=== PATIENT | male | born 1950 | race Caucasian/White ===

== ENCOUNTER 2016-08-20 08:16 | Outpatient (CLI) | payer MEDICARE ==
[~2016-08-20] VITALS: Ht 172.7 cm; Wt 95.9 kg
--- NOTE | ~2016-08-20 | HEMODYNAMI ---
PATIENT:SAMMI EASTON MEDICAL RECORD: [id number] : 50 LOCATION:DNORBERTO ADMISSION DATE: 08/20/16 Generatedon:08/20/201610:47 Patient name: SAMMI EASTON Patient #: [id number] : 1950 Date of study: 08/20/2016 Page: Of Hemodynamic Procedure Report Patient Data Patient Demographics Procedure consent was obtained First Name: SAMMI Gender: Male Last Name: JEMMA : 1950 Middle Initial: SPRING Age: 65 year(s) Patient #: [id number] Race: SSN: [id number] Additional ID: [id number] Contact details Address: [address] [address] State: [place] City: [place] Zip code: [address] Past Medical History Allergies Allergen Reaction Date Comments Reported Other allergy 08/20/2016 N Admission Admission Data Admission Date: 08/20/2016 Admission Time: 8:16 Arrival Date: 08/20/2016 Arrival Time: 10:00 Admit Source: Other Insurance Payor: Medicare Height (in.): 68 BSA: 2.09 (m2) Height (cm.): 172.72 BMI: 32.08 (kg/m2) Weight (lbs.): 211 Weight (kg.): 95.71 Lab Results Lab Result Date: 08/20/2016 Lab Result Time: 0:00 Biochemistry Name Units Result Min Max BUN mg/dl 16 --(---*)-- 7 18 Creatinine mg/dl 1.1 --(--*-)-- 0.6 1.3 CBC Name Units Result Min Max Hemoglobin g/dl 14.1 --(*---)-- 13.5 17.5 Procedure Procedure Types Cath Procedure Diagnostic Procedure LHC LH w/Coronaries PCI Procedure Coronary Stent Initial Miscellaneous Procedures Moderate Sedation up to 30 minutes Procedure Description Procedure Date Procedure Date: 08/20/2016 Procedure Start Time: 10:31 Procedure End Time: 10:44 Procedure Staff Name Function Tanner Snow MD Performing Physician Gracie Orourke RT Scrub Denice Fletcher RN Nurse Mickie Dillon RT Monitor Indication Angina Procedure Data Cath Procedure Fluoroscopy Diagnostic fluoroscopy Total fluoroscopy Time: 3 time: 3 min min Diagnostic fluoroscopy Total fluoroscopy dose: dose: 586.3 mGy 586.3 mGy Contrast Material Contrast Material Type Amount (ml) Isovue 370 103 Entry Location Entry Primary Successful Side Size Upsize Upsize Entry Closure Succes sful Closure Location (Fr) 1 (Fr) 2 (Fr) Remarks Device Remarks Femoral Right 5 Fr 6 Fr Exoseal artery Short Estimated blood loss: 5 ml Diagnostic catheters Device Type Used For End Catheter Placement Cordis 5Fr Pigtail LV Angiography Catheter (MP) Cordis 5Fr JL 4.0 Left Coronary Catheter (MP) Angiography Cordis 5Fr 3DRC Catheter Right Coronary (MP) Angiography Procedure Complications No complications Procedure Medications Medication Administration Route Dosage Oxygen NC 2 l/min Lidocaine 2% added to field 20 Heparin Flush Bag added to field 2 bags (1000units/500ml NS) 0.9% NaCl I.V. 100 ml/hr Benadryl I.V. 50 mg Versed I.V. 1 mg Fentanyl I.V. 50 mcg Versed I.V. 1 mg Fentanyl I.V. 50 mcg Heparin Bolus I.V. 4000 units Fentanyl I.V. 50 mcg Hemodynamics Rest BSA: 2.09 (m2) HGB: 14.1 (g/dl) O2 Consumption: Estimated: 241.12 (ml/min) O2 Co nsumption indexed: Estimated:115.37 (ml/min/m) Heart Rate: 67 (bpm) Pressure Samples Time Site Value (mmHg) Purpose Heart Use Rate(bpm) 10:32 LV 74/6,7 Snapshot 81 Snapshots Pre Cath Intra NCS Post Cath Vital Signs Time Heart Resp SPO2 NIBP (mmHg) Rhythm Pain Sedation Rate (ipm) (%) Status Level (bpm) 10:07:22 65 16 98 173/99(156) NSR 0 (11) 10(A) , No pain 10:11:53 62 17 97 175/111(159) NSR 0 (11) 10(A) , No pain 10:16:17 63 13 99 164/99(149) NSR 0 (11) 10(A) , No pain 10:21:32 59 16 98 165/91(130) NSR 0 (11) 10(A) , No pain 10:26:41 55 16 97 151/93(125) NSR 0 (11) 10(A) , No pain 10:31:02 53 17 97 140/93(121) NSR 0 (11) 9(A) , No pain 10:35:18 61 15 96 145/94(119) NSR 0 (11) 9(A) , No pain 10:39:38 63 16 94 145/85(108) NSR 0 (11) 9(A) , No pain 10:44:02 65 19 97 133/86(115) NSR 0 (11) 10(A) , No pain Medications Time Medication Route Dose Verified Delivered Reason Notes Effectiveness by by 10:12:53 Oxygen NC 2 Tanner Buffie used for l/min Edy Fletcher RN procedure 10:12:59 Lidocaine 2% added 20ml Tanner Tanner for local to vial Edy Snow MD anesthetic field 10:13:05 Heparin Flush added 2 Tanner Tanner used for Bag to bags Edy Snow MD procedure (1000units/500ml field NS) 10:13:15 0.9% NaCl I.V. 100 Tanner Buffie Per physician ml/hr Edy Fletcher RN 10:13:38 Benadryl I.V. 50 mg Tanner Buffie used for Edy Fletcher RN procedure 10:29:50 Versed I.V. 1 mg Tanner Buffie for sedation Edy Fletcher RN 10:29:58 Fentanyl I.V. 50 Tanner Buffie for sedation mcg Edy Fletcher RN 10:33:30 Versed I.V. 1 mg Tanner Buffie for sedation Edy Fletcher RN 10:33:35 Fentanyl I.V. 50 Tanner Buffie for sedation mcg Edy Fletcher RN 10:36:00 Heparin Bolus I.V. 4000 Tanner Buffie for verifi ed units Edy Fletcher RN anticoagulation with dr snow 10:40:16 Fentanyl I.V. 50 Tanner Buffie for sedation mcg Edy Fletcher RN Procedure Log Time Note 9:49:03 Diagnostic Cath Status : Elective 9:49:29 Indication : Angina 9:49:50 Informed consent obtained and on chart 9:50:45 Admit Source: Other 9:50:50 Patient Height : 172.72 cm 9:50:57 Patient Weight : 95.71 kg 9:50:57 Insurance Payor : Medicare 9:51:04 Arrival Date: 08/20/2016 10:00:00 AM 9:53:48 Lab Result : BUN 16 mg/dl 9:53:48 Lab Result : Hemoglobin 14.1 g/dl 9:53:48 Lab Result : Creatinine 1.1 mg/dl 9:54:00 Mickie Dillon RT(R) sent for patient. Start room use. 9:54:02 Time tracking: Regular hours 9:54:06 Plan of Care:Hemodynamics will remain stable., Cardiac rhythm will remain stable., Comfort level will be maintained., Respiratory function will remain adequate., Patient/ family verbilizes understanding of procedure., Procedure tolerated without complication., Recovers from procedure without complications.. 10:01:40 Patient received from Pre/Post Procedure Room to [facility] 3 Alert and oriented. Tansferred to table in Supine position. 10:01:41 Warm blankets applied, and jr hugger turned on for patient comfort. 10:01:41 Correct patient and procedure confirmed by team. 10:01:43 ECG and BP/O2 sat monitors applied to patient. 10:05:58 Vital chart was started 10:06:03 Baseline sample Acquired. 10:06:08 Rhythm: sinus rhythm 10:06:11 Full Disclosure recording started 10:06:37 H&P Date Dictated: 08/12/2016 Within 30 days and on chart., H&P Addendum completed by physician on day of procedure. (MUST COMPLETE FOR ALL OUTPATIENTS). 10:06:38 Pre-procedure instructions explained to patient. 10:06:40 Pre-op teaching completed and patient verbalized understanding. 10:06:41 Family in waiting room. 10:06:45 Patient NPO since Midnight. 10:06:55 Patient allergic to Other allergyPCN 10:06:58 Is the patient allergic to Iodine/contrast media? No. 10:07:00 Was the patient premedicated? Yes 10:07:03 Is patient on blood thinner?Yes 10:07:07 ACC The patient was administered the following blood thiners within the last 24 hours: ACCPlavix 10:07:13 Patient diabetic? No. 10:07:19 Snore? Yes 10:07:20 Sleep apnea? No 10:07:25 Dentures? Yes ? 10:07:30 Patient pain scale 0/10 ?. 10:07:42 IV patent on arrival in left hand with 0.9% NaCl at [facility]. 10:07:47 Lab results completed and on chart. 10:07:50 Right groin area was prepped with chlora-prep and draped in sterile fashion 10::53 Alarms reviewed by R. N. 10::54 Sharps counted by scrub and verified by R.N. 10::50 Baseline sample Acquired. 10:12:53 Oxygen 2 l/min NC was administered by Denice Fletcher RN; used for procedure; 10:12:59 Lidocaine 2% 20ml vial added to field was administered by Tanner Snow MD; for local anesthetic; 10:13:05 Heparin Flush Bag (1000units/500ml NS) 2 bags added to field was administered by Tanner Snow MD; used for procedure; 10:13:15 0.9% NaCl 100 ml/hr I.V. was administered by Denice Fletcher RN; Per physician; 10:13:38 Benadryl 50 mg I.V. was administered by Denice Fletcher RN; used for procedure; 10:25:14 Zero performed for pressure channel P1 10:27:42 Physician arrived 10:27:42 --------ALL STOP TIME OUT------ 10:27:42 Final Timeout: patient, procedure, and site verified with staff and physician. All members of the team are in agreement. 10:27:45 Right groin site verified by team. 10:27:47 Physical assessment completed. ASA score P 2 - A patient with mild systemic disease as per Tanner Snow MD. 10:27:50 Sedation plan: IV Moderate Sedation Versed, Fentanyl 10::50 Versed 1 mg I.V. was administered by Denice Fletcher RN; for sedation; 10::58 Fentanyl 50 mcg I.V. was administered by Denice Fletcher RN; for sedation; 10:30:24 Procedure started. 10:31:32 Local anesthetic to right femoral artery with Lidocaine 2% by Tanner Snow MD.INITIAL ACCESS ONLY 10:31:40 A 5 Fr sheath was inserted into the Right Femoral artery 10:32:11 Use device set Femoral Dx 10:32:12 Acist Syringe opened to sterile field. 10:32:12 Bag Decanter opened to sterile field. 10:32:13 Medline Cath Pack opened to sterile field. 10:32:13 Terumo 5Fr [place] Sheath opened to sterile field. 10:32:14 Acist Hand Control opened to sterile field. 10:32:15 Acist Manifold opened to sterile field. 10:32:15 Diagnostic Infinity 5Fr Multipack catheter opened to sterile field. 10:32:16 Tegaderm 4 x 4 opened to sterile field. 10:32:17 St Ever 260cm J .035 wire opened to sterile field. 10:32:28 A Cordis 5Fr Pigtail Catheter (MP) was advanced over the wire and used for LV Angiography. 10:32:45 LV hemodynamics recorded. 10:32:46 LV gram done using WYLIE 10:32:52 Injector settings: Ml/sec: 5, Volume: 15, 10:32:57 EF : 35 % 10:33:00 Catheter removed. 10:33:04 A Cordis 5Fr JL 4.0 Catheter (MP) was advanced over the wire and used for Left Coronary Angiography. 10:33:30 Versed 1 mg I.V. was administered by Denice Fletcher RN; for sedation; 10:33:33 LCA angiography performed. 10:33:35 Fentanyl 50 mcg I.V. was administered by Denice Fletcher RN; for sedation; 10:33:39 Injector settings: Ml/sec: 3, Volume: 6, 10:34:23 Terumo 6Fr [place] Sheath opened to sterile field. 10:34:24 Purplu BasixCompak Inflation Kit opened to sterile field. 10:34:25 Mart Whisper J 300cm 0.014 guide wire opened to sterile field. 10:34:33 Catheter removed. 10:34:40 A Cordis 5Fr 3DRC Catheter (MP) was advanced over the wire and used for Right Coronary Angiography. 10:36:00 Heparin Bolus 4000 units I.V. was administered by Denice Fletcher RN; for anticoagulation; verified with dr snow 10:36:10 Injector settings: Ml/sec: 3, Volume: 6, 10:36:20 Cordis 6FR XB 4.0 guide catheter opened to sterile field. 10:36:25 Catheter removed. 10:36:25 Proceeding to intervention. 10:36:39 Sheath upsized to a 6 Fr Short. 10:36:45 6 Fr xb 4 guide catheter was inserted over the wire 10:37:04 whisper wire advanced. 10:40:16 Fentanyl 50 mcg I.V. was administered by Denice Fletcher RN; for sedation; 10:40:37 Inflation Number: 1 A Medtronic Resolute 2.25 X 26 stent was prepped and advanced across the Mid CX. The stent was deployed at 13 AL for 0:10 (min:sec). 10:41:05 Stent catheter was removed intact over wire. 10:41:05 Wire removed. 10:41:06 Guide catheter removed. 10:42:07 Cordis 6Fr Exoseal opened to sterile field. 10:42:15 Sheath removed intact; hemostasis achieved with Exoseal to the Right Femoral artery. 10:42:17 Procedure ended.(Physican Out) 10:42:38 Fluoroscopy time 03.00 minutes. 10:42:44 Fluoroscopy dose: 586.3 mGy 10:42:44 Flurop Dose total: 586.3 10:42:49 Contrast amount:Isovue 370 103ml. 10:43:32 Sharps counted by scrub and verified by R.N. 10:43:33 Insertion/operative site no bleeding no hematoma. 10:43:35 Post-op/insertion site Right Femoral artery dressed using a 4 x 4 and Tegaderm. 10:43:38 Post right femoral artery:stable 10:43:39 Post Procedure Pulses reassessed and unchanged 10:43:42 Post procedure rhythm: unchanged. 10:43:44 Estimated blood loss: 5 ml 10:43:45 Post procedure instruction explained to patient.Patient verbalizes understanding. 10:43:46 Patient needs reinforcement of post procedure teaching. 10:44:03 Procedure type changed to Cath procedure, Diagnostic procedure, LHC, LHC w/Coronaries, PCI procedure, Coronary Stent Initial, Miscellaneous Procedures, Moderate Sedation up to 30 minutes 10:44:04 Procedure and supply charges have been captured, reviewed, submitted and are correct. 10:44:08 Procedure Complication : No complications 10:44:10 Vital chart was stopped 10:44:11 See physician's report for complete and final results. 10:44:14 Report given to Pre/Post Procedure Room. 10:44:16 Patient transfered to Pre/Post Procedure Room with Stretcher. 10:44:18 Procedure ended. 10:44:18 Full Disclosure recording stopped 10:44:26 ACC-PCI Only Patient was given prescriptions, or instructed by Tanner Snow MD to start/continue the following medications upon discharge: Plavix 10:44:27 End room use (Document Last) Intervention Summary Intervention Notes Time ActionType Lesion and Equipment Action# Pressure Duration Attributes Used 10:40:37 Place stent Mid CX Medtronic 1 13 00:10 Resolute 2.25 X 26 stent Device Usage Item Name Manufacture Quantity Catalog Hospital Part Current Minimal Lot# / Number Charge Number Stock Stock Serial# Code Acist Acist 1 [id number] 408063 919698 093966 20 Syringe Medical Systems Inc Bag Microtek 1 2002S 323182 90890 418307 5 [employer] Medline Cardinal 1 [id number] 790734 60791 963404 5 Cath Pack Health Terumo 5Fr Terumo 1 [id number] 725046 690299 761763 40 [place] Sheath Acist Hand Acist 1 56725 129675 947504 616450 5 Control Medical Systems Inc Acist Acist 1 49609 366773 578832 425486 5 Manifold Medical Systems Inc Diagnostic Cardinal 1 [id number] 686628 58557 816374 30 Infinity Health 5Fr Multipack catheter Tegaderm 4 3M 1 1626W 644665 890242 237[address] Ever 1 701418 615556 386120 715145 30 260cm J .035 wire Cordis 5Fr Cardinal 1 129082 5 Pigtail Health Catheter (MP) Cordis 5Fr Cardinal 1 768046 5 JL 4.0 Health Catheter (MP) Terumo 6Fr Terumo 1 [id number] 439641 597207 765150 40 [place] Sheath Merit Merit 1 [id number] 658695 197522 595312 15 BasixCompak Medical Inflation Kit Mart Mart 1 [id number] 175787 986348 840620 5 Whisper J Vascular 300cm 0.014 guide wire Cordis 5Fr Cardinal 1 637770 5 3DRC Health Catheter (MP) Cordis 6FR Cardinal 1 [id number] 991923 383247 355271 2 XB 4.0 Health guide catheter Medtronic Medtronic 1 [id number] 351213 792320 0 [id number] Resolute 2.25 X 26 stent Cordis 6Fr Cardinal 1 EX600 101946 071606 735354 10 [facility] Prenova Signature Audit [place] Stage Time Signature Unsigned Intra-Procedure 08/20/2016 Mickie Dillon 10:47:22 AM RT(R) Signatures Monitor : Mickie Dillon RT Signature : Date : Time : [id number] [place] [address]
[~2016-08-20 08:16] MED LIST: BAYER CHEWABLE81 MG PO; LISINOPRIL10 MG PO; NORVASC5 MG PO; PLAVIX75 MG PO; ZESTRIL40 MG PO
[2016-08-20] MEDS ORDERED: COREG12.5 MG PO (08:59)
[2016-08-20] MEDS ORDERED: VITAMIN D250000 UNIT PO (09:00)
[2016-08-20] MEDS ORDERED: CIALIS5 MG PO (09:00)
[2016-08-20 09:03] VITALS: BP 164/92; Ht 172.7 cm; Wt 95.9 kg
[2016-08-20 09:21] LABS: BASOPHILS 0.1 % (0.0-2.0); EOSINOPHILS 3.3 % (0-7); HEMATOCRIT 41.8 % (42.0-54.0); HEMOGLOBIN 14.1 g/dL (13.5-17.5); IMMATURE GRANULOCYTES 0.3 % (0-5); LYMPHOCYTES 10.2 % (15-50); MCH 31.1 pg (26.0-34.0); MCHC 33.7 g/dL (31.0-37.0); MCV 92.3 fL (80.0-100.0); MEAN PLATELET VOLUME 10.6 fL (7.4-10.4); MONOCYTES 8.2 % (2-11); NEUTROPHILS 77.9 % (40-80); PLATELET COUNT 128 10x3/uL (130-400); RBC 4.53 10x6/uL (4.20-6.10); WBC 7.2 10x3/uL (4.8-10.8)
[2016-08-20 09:35] LABS: ANION GAP 12.5 mmol/L (8-16); CALCIUM 8.5 mg/dL (8.5-10.1); CARBON DIOXIDE 25.2 mmol/L (21.0-32.0); CREATININE - SERUM 1.1 mg/dL (0.6-1.3); POTASSIUM - SERUM 3.7 mmol/L (3.5-5.1)
--- NOTE | 2016-08-20 11:15 | NUR ---
RESTING IN BED QUIETLY. VSS, 2L NC, NO RESP DISTRESS NOTED. RIGHT GROIN DRESSING CDI, NO BLEEDING OR HEMATOMA NOTED. INSTRUCTED PT TO KEEP RIGHT LEG STRAIGHT AND HEAD FLAT ON PILLOW.
--- NOTE | 2016-08-20 11:45 | NUR ---
QUIETLY RESTING IN BED. 2L NC, NO RESP DISTRESS NOTED. VSS. RIGHT GROIN CDI, NO BLEEDING OR HEMATOMA NOTED. AT BEDSIDE, CALL LIGHT WITHIN REACH.
--- NOTE | 2016-08-20 12:00 | NUR ---
HEAD FLAT ON PILLOW, QUIETLY RESTING. 2L NC, NO RESP DISTRESS NOTED. VSS. RIGHT GROIN CDI, NO BLEEDING OR HEMATOMA NOTED. SPRITE GIVEN, NO C/O N/V. WILL CONTINUE TO MONITOR.
--- NOTE | 2016-08-20 12:30 | NUR ---
QUIETLY RESTING IN BED WITH HEAD FLAT ON PILLOW. NO C/O AT THIS TIME. VSS. RIGHT GROIN CDI.
--- NOTE | 2016-08-20 13:00 | NUR ---
RESTING QUIETLY. VSS. DENIES ANY NEEDS AT THIS TIME. RIGHT GROIN CDI.
--- NOTE | 2016-08-20 14:00 | NUR ---
HOB ELEVATED 30 DEGREES. RIGHT GROIN CDI.
--- NOTE | 2016-08-20 14:30 | NUR ---
LEFT HAND PIV D/C'D WITH CATHETER INTACT. BAND AID TO SITE. UP TO BEDSIDE TO GET DRESSED.
--- NOTE | 2016-08-20 14:38 | OP ---
PATIENT NAME: SAMMI EASTON MEDICAL RECORD: [id number] :50 LOCATION:D.CAT ADMISSION DATE: SURGEON: HARSHIL LLOYD MD DATE OF OPERATION: 08/20/2016 PROCEDURES: 1. PTCA stent left circumflex. 2. Left heart catheterization. 3. Selective coronary angiography. 4. Left ventriculogram. INDICATION: Angina and coronary artery disease. DESCRIPTION OF PROCEDURE: After informed consent was obtained and after detailed explanation of risks, benefits, as well as alternative therapies, the patient elected to proceed with angiogram and angioplasty. The right femoral area was prepped and draped in normal sterile fashion. Right femoral artery was cannulated via modified Seldinger technique with placement of 6-Ugandan sheath. All catheters exchanged through this sheath. FINDINGS: Left ventriculogram was performed in standard 30-degree WYLIE view reveals global hypokinesis throughout all segments, overall ejection fraction 35% to 40%. SELECTIVE CORONARY ANGIOGRAPHY: 1. Left main is with no significant angiographic disease. 2. The left anterior descending has mild irregularities, but no flow-limiting stenosis. 3. The left circumflex has a 90% stenosis distally. 4. The right coronary is small, nondominant with no significant disease throughout. PTCA STENT OF THE LEFT CIRCUMFLEX: The stent used was a 2.25 x 26 mm Resolute taken to 17 atmospheres. Result was 0% residual stenosis. OVERALL IMPRESSION: Successful percutaneous transluminal coronary angioplasty stent of the left circumflex going from 90% initial stenosis to 0% residual. 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
--- NOTE | 2016-08-20 14:41 | NUR ---
UP TO RESTROOM TO VOID.
--- NOTE | 2016-08-20 14:48 | NUR ---
DISCHARGE INSTRUCTIONS GIVEN, VERBALIZED UNDERSTANDING.
== END 2016-08-20 14:56 ==
LOC: D.CATH 08:16
PROVIDERS: Internal Medicine Interventional Cardiology
DX: I25.10 Atherosclerotic heart disease of native coronary artery without angina pectoris (principal); I10 Essential (primary) hypertension; I42.9 Cardiomyopathy, unspecified; E78.5 Hyperlipidemia, unspecified
CPT/HCPCS: 93458; C9600

== ENCOUNTER 2016-10-17 00:46 | Observation (INO) | payer MEDICARE ==
[2016-10-17] VITALS (18 sets, daily range): BP systolic 136–187; BP diastolic 81–117; Ht 172.7 cm; Wt 93.0 kg
[~2016-10-17] VITALS: Ht 172.7 cm; Wt 93.0 kg
--- NOTE | ~2016-10-17 | EC ---
PATIENT:SAMMI EASTON DATE OF SERVICE: 10/17/16 SEX: M MEDICAL RECORD: [id number] DATE OF : [birth year] LOCATION:D.M2 D.210 AGE OF PATIENT: 66 ADMISSION DATE: 10/17/16 REFERRING PHYSICIAN: INTERPRETING PHYSICIAN: EDUAR NIEVES M.D. ECHOCARDIOGRAM REPORT ECHO CHARGES 4 ECHO COMPLETE CLINICAL DIAGNOSIS: CHF/HTN HX CAD/STENTS ECHOCARDIOGRAPHIC MEASUREMENTS (adult normal given) AC root (d.<3.7cm) 3.7 LV Septum d (<1.2 cm> 1.4 Valve Excursion 1.8 LV Septum (systole) 1.7 Left Atria (s.<4.0cm> 3.8 LVPW d(<1.2cm) 1.3 RV (d.<2.3cm) 4.1 LVPW (sytole) 1.6 LV diastole(<5.6CM) 5.4 MV E-F(>70mm/sec) LV systole 4.2 LVOT Diameter 1.8 MV exc.(>10mm) 1.7 Est.ejection fraction (50-75%) Pericardial Effusion N DOPPLER: LVIT A 84.0 E 74.0 LA RVSP 26 LVOT 93 AOP1/2T Asc. Ao 138 RVOT 77 RA PA 133 AV Gradient Peak 7.60 AV Mean 4.31 AV Area 2.0 MV Gradient Peak 3.23 MV Mean 1.47 MV Area COMMENTS: Inspector Rough Castings: Katie FLOWERS Outsewer:Andreea Snow TAPE# PACS DATE OF SERVICE: 10/17/2016 INDICATION: Congestive heart failure. REFERRING PHYSICIAN: Jesse Husain MD. DESCRIPTION: Left ventricle demonstrates left ventricular hypertrophy. There is moderate LV dysfunction noted. Estimated ejection fraction is in the order of 35%. Mitral valve is structurally normal. There is mztw-yc-gctsfedz regurgitation seen. Left atrium is normal size. The aortic valve is ECHOCARDIOGRAM REPORT [id number] SAMMI EASTON trileaflet. I do not see any stenosis or regurgitation. Right ventricle is moderately dilated. Tricuspid valve is normal. There is mild regurgitation seen. Right atrium is normal size. There is no pericardial effusion noted. IMPRESSION: 1. Moderate left ventricular dysfunction with ejection fraction of 35%. 2. Nhma-rw-aiupqljg mitral regurgitation. 3. Mild tricuspid regurgitation. TRANSINT:[id number] Voice Confirmation ID: [id number] DOCUMENT ID: [id number] EDUAR NIEVES M.D. CC: [id number] DICTATION DATE: 10/18/16 1242 IGNITER ASSEMBLER: 10/19/16 0021 DIS IN 10/18/16 [facility] [address] [id number]
[~2016-10-17 00:46] MED LIST changes: +CIALIS5 MG PO; +COREG12.5 MG PO; +VITAMIN D250000 UNIT PO
[2016-10-17 02:44] LABS: TROPONIN-I 0.096 ng/mL (0.000-0.060)
[2016-10-17 03:03] LABS: BASOPHILS 0.2 % (0-2); EOSINOPHILS 2.1 % (0-7); HEMOGLOBIN 14.8 g/dL (13.5-17.5); IMMATURE GRANULOCYTES 0.1 % (0-5); LYMPHOCYTES 7.5 % (15-50); MCHC 34.4 g/dL (31.0-37.0); MCV 93.1 fL (80.0-100.0); MEAN PLATELET VOLUME 11.2 fL (7.4-10.4); MONOCYTES 6.6 % (2-11); NEUTROPHILS 83.5 % (40-80); PLATELET COUNT 131 10x3/uL (130-400); RBC 4.62 10x6/uL (4.20-6.10); RDW 13.2 % (11.5-14.5); WBC 10.9 10x3/uL (4.8-10.8)
[2016-10-17 03:14] LABS: ALBUMIN 3.9 g/dL (3.4-5.0); ALKALINE PHOSPHATASE 119 U/L (46-116); ALT (SGPT) 21 U/L (10-68); BILIRUBIN - TOTAL 0.65 mg/dL (0.2-1.3); CALC OSMOLALITY 288 mosm/kg (275-300); CALCIUM 8.8 mg/dL (8.5-10.1); CARBON DIOXIDE 26.3 mmol/L (21.0-32.0); CHLORIDE - SERUM 106 mmol/L (98-107); CREATININE - SERUM 1.5 mg/dL (0.6-1.3); GLUCOSE 119 mg/dL (74-106); POTASSIUM - SERUM 3.6 mmol/L (3.5-5.1); PROTEIN - SERUM 7.1 g/dL (6.4-8.2); SODIUM 144 mmol/L (136-145); UREA NITROGEN 16 mg/dL (7-18); eGFR NON AFRICAN AMERICAN 50 mL/min (90-120)
[2016-10-17 03:33] LABS: CKMB 1.5 U/L (0.0-3.6); CREATINE KINASE 249 UL (21-232); PRO BNP 2931 pg/mL (0-125)
--- NOTE | 2016-10-17 05:45 | NUR ---
PT ARRIVED ON UNIT VIA STRETCHER, PLACED ON MONITORS, ALERT AND ORIENTED, ON 2L NC WITH 97% O2 SAT. RIGHT A/C PIV S/L, URINAL AT BEDSIDE, VSS, CALL LIGHT IN REACH
--- NOTE | 2016-10-17 09:10 | NUR ---
PT SYSTOLIC CONSISTENTLY OVER 160. HAVING OCCASIONAL PVC'S. NO MEDICATIONS ORDERED. CALLED DR HERNANDEZ. ASKED FOR RESTART OF COREG AND LISINOPRIL HOME MEDS AND ADDED CLONIDINE 0.1 Q4 FOR SBP GREATER THAN 180.
--- NOTE | 2016-10-17 09:19 | NUR ---
DISCUSSED PT WITH LYNDON FROM CARDIOLOGY. ASKED FOR HYDRALAZINE 5-10MG IV Q4H PRN SBP GREATER THAN 180
--- NOTE | 2016-10-17 10:45 | NUR ---
PT GIVEN LASIX AND SOLUMEDROL VIA IV. PT ALL OF A SUDDEN BECAME RED IN THE FACE AND STARTING CHOKING AND ATTEMPTING TO VOMIT. MEDICATION HAD IMMEDIATELY MADE HIM SICK. PT HAD A DOSE OF LASIX IN THE ER PREVIOUSLY. SOLUMEDROL WAS A ONE TIME DOSE. DR HERNANDEZ ON UNIT WHEN THIS OCCURRED. PT RECOVERED QUICKLY AND NO OTHER SYMPTOMS. WILL CONTINUE TO MONITOR.
[2016-10-17 10:55] LABS: CKMB 1.3 U/L (0.0-3.6)
--- NOTE | 2016-10-17 16:41 | NUR ---
PT EXHIBITING PVC'S AND PAC'S MORE OFTEN THAN THIS MORNING. ALSO BRADYCARDIC WITH PAUSE AFTER EVERY THIRD BEAT. DR NIEVES NOTIFIED. MEDICATIONS REVIEWED. HE ASKS FOR COREG TO BE HELD IF PT REMAINS BRADYCARDIC.
[2016-10-17 17:48] LABS: CKMB 1.2 U/L (0.0-3.6); TROPONIN-I 0.103 ng/mL (0.000-0.060)
--- NOTE | 2016-10-17 18:00 | NUR ---
AT BEDSIDE FOR 6PM VISIT. PT AWAKE AND CONVERSANT. DENIES NEEDS.
--- NOTE | 2016-10-17 19:30 | NUR ---
REPORT REC'D AND CARE ASSUMED, REC'D PT ON ROOM AIR, AWAKE, ALERT, ORIENTED X 3, PT DENIES PAIN, RIGHT A/C PIV SALINE LOCKED, PT MAEE, PPP, SR UP X 2, CALL LIGHT IN REACH.
--- NOTE | 2016-10-17 20:20 | NUR ---
ROUTINE DOSE OF LASIX 40MG GIVEN SLOW IVP, PT RESTING QUIETLY WATCHING TV, DENIES NEEDS, SR UP X 2, CALL LIGHT IN REACH.
--- NOTE | 2016-10-17 21:00 | NUR ---
NO VISITORS IN AT THIS TIME.
--- NOTE | 2016-10-17 22:05 | NUR ---
REPORT CALLED TO Saurav KRAFT RN AND PT TRANSPORTED VIA WHEELCHAIR TO ROOM 2104 WITHOUT DIFFICULTY BY Ayesha EDWARDS RN.
--- NOTE | 2016-10-17 22:15 | NUR ---
REC'D FROM CVICU AT THIS TIME WITH DX OF CHF, CAD. ORIENTED TO ROOM, INTIAL ASSESSMENT COMPLETED AND RECORDED PER FLOW SHEET. R AC PIV PATENT, CLEAR OF REDNESS OR EDEMA, CURRENTLY SALINE LOCKED. DENIES ANY C/Os OF CHEST PAIN OR ANY OTHER KIND OF DISCOMFORT. WILL CONT WITH CURRENT PLAN OF CARE.
--- NOTE | 2016-10-17 23:35 | NUR ---
PT RECEIVED VIA WHEELCHAIR FROM CV ICU AWAKE, ALERT, ORIENTED. TELEMETRY WILL BE PLACED. DENIES ANY NEEDS, IS IN NO ACUTE DISTRESS. CONTINUE TO MONITOR CLOSELY.
[2016-10-18] VITALS: BP 158/88
[2016-10-18 02:25] LABS: CKMB 1.7 U/L (0.0-3.6)
[2016-10-18 02:34] LABS: TROPONIN-I 0.084 ng/mL (0.000-0.060)
[2016-10-18 04:00] VITALS: BP 146/90
[2016-10-18 04:59] LABS: BASOPHILS 0 % (0-2); EOSINOPHILS 0 % (0-7); HEMATOCRIT 43.9 % (42.0-54.0); HEMOGLOBIN 15.2 g/dL (13.5-17.5); IMMATURE GRANULOCYTES 0.2 % (0-5); LYMPHOCYTES 6.4 % (15-50); MCH 31.9 pg (26.0-34.0); MCHC 34.6 g/dL (31.0-37.0); MCV 92.2 fL (80.0-100.0); MEAN PLATELET VOLUME 10.8 fL (7.4-10.4); MONOCYTES 3.3 % (2-11); NEUTROPHILS 90.1 % (40-80); PLATELET COUNT 127 10x3/uL (130-400); RBC 4.76 10x6/uL (4.20-6.10); RDW 12.9 % (11.5-14.5)
[2016-10-18 05:13] LABS: ALBUMIN 3.8 g/dL (3.4-5.0); BILIRUBIN - TOTAL 0.68 mg/dL (0.2-1.3); C-REACTIVE PROTEIN 8.9 mg/dL (0.0-0.9); CALCIUM 9.1 mg/dL (8.5-10.1); CARBON DIOXIDE 28.6 mmol/L (21.0-32.0); CHOL - HDL RATIO 3.8 ratio (2.3-4.9); CREATININE - SERUM 1.7 mg/dL (0.6-1.3); LDL-HDL RATIO 2.6 ratio (1.5-3.5); POTASSIUM - SERUM 3.6 mmol/L (3.5-5.1); PROTEIN - SERUM 7.2 g/dL (6.4-8.2)
--- NOTE | 2016-10-18 06:30 | NUR ---
HAS RESTED THROUGHOUT NIGHT W/O COMPLAINT. RESP EVEN AND LABORED. WILL CONT WITH CURRENT PLAN OF CARE
--- NOTE | 2016-10-18 07:16 | NUR ---
PT SITTING UP IN BED DENIES NEEDS WILL CONT TO MONITOR
[2016-10-18 08:03] VITALS: BP 132/87
[2016-10-18 11:48] VITALS: BP 146/89
[2016-10-18] MEDS ORDERED: LASIX40 MG PO (15:12)
[2016-10-18] MEDS ORDERED: K-DUR20 MEQ PO (15:13)
[2016-10-18 15:38] VITALS: BP 148/86
--- NOTE | 2016-10-18 16:50 | NUR ---
WENT OVER DC PAPERWORK WITH PT PT VERBALIZES UNDERSTANDING. DC PIV WITH CATH TIP INTACT. DC TELE AND RETURNED TO [employer]. PATROL SERGEANT WHEELED PT DOWN TO FRONT ENTRANCE.
== END 2016-10-18 16:58 | disposition home or self-care (01) ==
LOC: D.ER 00:46 → D.CVICU 05:09 → D.M2 05:09 → OBSVTIME 05:09 → D.M2 22:19
PROVIDERS: Emergency Medicine; Internal Medicine Cardiovascular Disease; ADMIT Family Medicine
DX: I11.0 Hypertensive heart disease with heart failure (principal); I50.21 Acute systolic (congestive) heart failure; N17.9 Acute kidney failure, unspecified; I42.9 Cardiomyopathy, unspecified; I25.10 Atherosclerotic heart disease of native coronary artery without angina pectoris; Z95.5 Presence of coronary angioplasty implant and graft

== ENCOUNTER → 2016-11-21 10:26 | Outpatient (CLI) | payer MEDICARE ==
[~2016-11-21 10:26] MED LIST changes: +K-DUR20 MEQ PO; +LASIX40 MG PO
== END | disposition home or self-care (01) ==
LOC: D.US 10:26
DX: I10 Essential (primary) hypertension (principal)

== ENCOUNTER 2016-11-29 08:44 | Emergency (ER) | payer MEDICARE ==
[2016-11-29 09:17] LABS: BASOPHILS 0.2 % (0-2); EOSINOPHILS 9.8 % (0-7); HEMATOCRIT 40.4 % (42.0-54.0); IMMATURE GRANULOCYTES 0.3 % (0-5); LYMPHOCYTES 13.7 % (15-50); MCH 31.7 pg (26.0-34.0); MCHC 34.7 g/dL (31.0-37.0); MCV 91.6 fL (80.0-100.0); MEAN PLATELET VOLUME 11.3 fL (7.4-10.4); MONOCYTES 6.4 % (2-11); NEUTROPHILS 69.6 % (40-80); PLATELET COUNT 122 10x3/uL (130-400); RBC 4.41 10x6/uL (4.20-6.10); WBC 6.6 10x3/uL (4.8-10.8)
[2016-11-29 09:33] LABS: ALBUMIN 3.6 g/dL (3.4-5.0); ANION GAP 12.6 mmol/L (8-16); BILIRUBIN - TOTAL 0.55 mg/dL (0.2-1.3); CALCIUM 8.9 mg/dL (8.5-10.1); CARBON DIOXIDE 25.8 mmol/L (21.0-32.0); CREATININE - SERUM 1.3 mg/dL (0.6-1.3); POTASSIUM - SERUM 3.4 mmol/L (3.5-5.1); PROTEIN - SERUM 6.8 g/dL (6.4-8.2)
[2016-11-29 09:41] LABS: TROPONIN-I 0.034 ng/mL (0.000-0.060)
[2016-11-29 10:16] LABS: APPEARANCE CLEAR (CLEAR); BILIRUBIN NEGATIVE (NEGATIVE); COLOR YELLOW (YELLOW); GLUCOSE NEGATIVE (NEGATIVE); KETONE NEGATIVE (NEGATIVE); LEUKOCYTE ESTERASE NEGATIVE (NEGATIVE); NITRITE NEGATIVE (NEGATIVE); PROTEIN NEGATIVE (NEGATIVE); UROBILINOGEN NORMAL (NORMAL)
== END 2016-11-29 12:59 | disposition home or self-care (01) ==
LOC: D.ER 08:44
PROVIDERS: Emergency Medicine
DX: I10 Essential (primary) hypertension (principal); I25.10 Atherosclerotic heart disease of native coronary artery without angina pectoris; I49.3 Ventricular premature depolarization

== ENCOUNTER 2017-03-31 12:31 | Inpatient (IN) | payer MEDICARE ==
[~2017-03-31] VITALS: Ht 172.7 cm; Wt 98.8 kg
[2017-03-31 13:51] LABS: BASOPHILS 0.1 % (0-2); EOSINOPHILS 1.6 % (0-7); HEMATOCRIT 40.4 % (42.0-54.0); HEMOGLOBIN 13.4 g/dL (13.5-17.5); IMMATURE GRANULOCYTES 0.1 % (0-5); LYMPHOCYTES 12.5 % (15-50); MCH 31.6 pg (26.0-34.0); MCHC 33.2 g/dL (31.0-37.0); MCV 95.3 fL (80.0-100.0); MEAN PLATELET VOLUME 10.6 fL (7.4-10.4); MONOCYTES 10.3 % (2-11); NEUTROPHILS 75.4 % (40-80); RBC 4.24 10x6/uL (4.20-6.10); RDW 13.9 % (11.5-14.5); WBC 6.8 10x3/uL (4.8-10.8)
[2017-03-31 13:59] LABS: APTT 28.8 SECONDS (22.8-39.4); INR 1.2 (0.85-1.17); PROTIME 15.1 SECONDS (11.6-15.0)
[2017-03-31 14:02] LABS: PLATELET COUNT 217 10x3/uL (130-400)
[2017-03-31 14:03] LABS: ALBUMIN 3.7 g/dL (3.4-5.0); ANION GAP 11.6 mmol/L (8-16); BILIRUBIN - TOTAL 0.5 mg/dL (0.2-1.3); CALCIUM 9.2 mg/dL (8.5-10.1); CREATININE - SERUM 1.4 mg/dL (0.6-1.3); POTASSIUM - SERUM 3.6 mmol/L (3.5-5.1)
[2017-03-31 14:16] LABS: TROPONIN-I 0.03 ng/mL (0.000-0.060)
--- NOTE | 2017-03-31 18:21 | NUR ---
TRANSFER FROM ER BY W/C. SAMINTED TO ROOM. CALL LIGHT IN REACH. WILL CONT. PLAN OF CARE.
--- NOTE | 2017-03-31 19:50 | NUR ---
PT RESTING IN BED. AT BEDSIDE. ALERT/ORIENTED. CARDIZEM DRIP INFUSING AT 10ML/HR TO RIGHT A/C. NONLABORED RESPIRATIONS ON ROOM AIR. CURRENTLY UCAF 120'S. ADMISSION ASSESSMENT COMPLETED. MED REC REVIEWED/UPDATED. PLAN OF CARE INITIATED.
[2017-03-31 20:59] VITALS: BP 128/86
--- NOTE | 2017-03-31 21:51 | NUR ---
RESTING. IV CARDIZEM DRIP INFUSING. NOW FLUCTUATING BETWEEN 80-110 FROM CONTROLLED TO UNCONTROLLED AFIB. NO DISTRESS. CPOC.
[2017-03-31 23:41] VITALS: BP 135/82; BMI 32.2
[2017-04-01] MEDS ORDERED: K-TAB10 MEQ PO (00:02)
[2017-04-01] MEDS ORDERED: NITROSTAT0.4 MG SL (00:05)
[2017-04-01] MEDS ORDERED: LAMISIL250 MG PO (00:06)
[2017-04-01] MEDS ORDERED: LISINOPRIL10 MG PO (00:07)
[2017-04-01] MEDS ORDERED: NIFEDIPINE ER60 MG PO (00:11)
[2017-04-01 00:30] VITALS: BP 121/81
--- NOTE | 2017-04-01 04:48 | NUR ---
PT'S IV FOR HIS CARDIZEM DRIP IS IN HIS RIGHT A/C. THIS PROHIBITS HIM FROM BENDING HIS ARM WITHOUT HIS IV PUMP ALARMING. ATTEMPTED MULTIPLE TIMES TO RESITE NEW IV WITH NO SUCCESS. CPOC. CARDIZEM INFUSING WITHOUG ISSUES AND PT KEEPING HIS ARM STREICHED OUT.
[2017-04-01 06:03] VITALS: BP 124/91
[2017-04-01 08:07] VITALS: BP 131/87
--- NOTE | 2017-04-01 10:24 | NUR ---
TELEMETRY CAF. RUN OF 11 NOTED. B/P 136.87. CALL LIGHT IN REACH. AT BS. WILL CONT. PLAN OF CARE.
--- NOTE | 2017-04-01 13:05 | CN ---
PATIENT NAME:SAMMI EASTON MEDICAL RECORD: [id number] : 50 LOCATION:D.[place] D.2118 ADMIT DATE: 03/31/17 ACCOUNT: [id number] CONSULTING PHYSICIAN: SUDHA REIS MD REFERRING PHYSICIAN: SAMSON ALARCON MD DATE OF CONSULTATION: 04/01/2017 HISTORY OF PRESENT ILLNESS: A 66-year-old gentleman with known history of coronary artery disease, has history of cardiomyopathy as well, admitted with in retrospect 7-10 day history of progressive shortness of breath, became acutely worse, now prior to admission was found to be in atrial fibrillation with RVR. He has a history of coronary artery disease, status post intervention. He also has history of cardiomyopathy, EF 30% to 35%. We are asked to see him concerning his cardiovascular status. PAST MEDICAL HISTORY: 1. History of coronary artery disease. 2. Hypertension. 3. Hyperlipidemia. ALLERGIES: PENICILLIN. MEDICATIONS: Typically include Lamisil 250 every day, Plavix 75 every day, lisinopril 10 every day, nifedipine 60 every day, aspirin 81 every day, potassium 10 b.i.d. SOCIAL HISTORY: Nonsmoker and nondrinker. He is able to take care of his ADLs. He is . REVIEW OF SYSTEMS: The patient reports easy bruising but reports no swollen glands. The patient reports no fever, no night sweats, no significant weight gain, no significant weight loss. No significant exercise tolerance. The patient reports no dry eyes, no irritation, no vision change. Patient reports no difficulty hearing and no ear pain. Patient reports no frequent nose bleeds or nose and sinus problems. Patient reports on arm pain on exertion. No shortness of breath while lying down. No history of heart murmur. Patient reports no cough, no wheezing or coughing up blood. Patient reports no abdominal pain, no vomiting. Normal appetite. No diarrhea and not vomiting blood. No nausea and no constipation. Patient reports no incontinence. No difficulty urinating. No hematuria. No increased frequency. Patient reports no muscle aches. No weakness, no arthralgias, no back pain. No swelling of the extremities. Patient reports no abnormal mole, no jaundice, no rashes. Reports no loss of consciousness. No weakness and no numbness. No seizures, dizziness, or headaches. The patient reports no depression, no sleep disturbance, feeling safe in a relationship and no alcohol abuse. Patient reports on fatigue. Reports no runny nose or sinus pressure. No itching, no hives, and no frequent sneezing. PHYSICAL EXAMINATION: GENERAL: This is a somewhat chronically ill-appearing gentleman, in no acute distress. VITAL SIGNS: Blood pressure 124/91, pulse 86 and irregular. HEENT: Normocephalic, atraumatic. NECK: No JVD. No bruits are noted. HEART: Irregular, rate is about 110. There is II/ systolic ejection murmur. CONSULT REPORT [id number] SAMMI EASTON I did not hear an S3. LUNGS: Prolonged expiration phase with end-expiratory wheezes. ABDOMEN: Soft, nontender. EXTREMITIES: Pulses are 2+. A 1+ edema. NEUROLOGIC: Grossly intact. DIAGNOSTIC DATA: ECG shows nonspecific ST-T changes, atrial fibrillation. IMPRESSION: Atrial fibrillation, cardiomyopathy. PLAN: At this point in time, add carvedilol for both rate control and cardiomyopathic standpoint as well as Aldactone. Given unknow history, start Xarelto this time as well. Further recommendations based on the above. TRANSINT:[id number] Voice Confirmation ID: [id number] DOCUMENT ID: [id number] SUDHA REIS MD at 1305 CC: [id number] DICTATION DATE: 04/01/17805 DECORATIVE CUTTING MACHINE TENDER: 04/01/17 0832 ADM IN [facility] [address] [place] [address]
[2017-04-01 13:38] VITALS: BP 103/70
[2017-04-01 16:52] VITALS: BP 104/75
--- NOTE | 2017-04-01 19:21 | NUR ---
ASSESSMENT COMPLETE, A&O, RESPERATIONS EVEN ON AT 2 LITER VIA NC. IV TO RIGHT AC WITH CARDIZEM INFUSING AT 10 CC/HR. PT DENIES PAIN OR NEEDS, BED LOW, CL IN REACH.
--- NOTE | 2017-04-01 20:32 | NUR ---
IV TO RIGHT AC RED AND SWOLLEN, PT STATES THAT ITS SORE, REMOVED IV CAHT TIP INTACT, COVERED WITH 2X2 AND TAPE, RESITED IV TO LEFT FOREARM, 22 GAUGE, FIRST ATTEMPT, PT TOLDERATED WELL.
--- NOTE | 2017-04-01 21:10 | NUR ---
HS MEDS GIVEN WITH FRESH ICE WATER, PT DENIES PAIN OR NEEDS, BED LOW, CL IN REACH. WILL CONT TO MONITOR.
[2017-04-01 21:53] VITALS: BP 116/83
[2017-04-02] VITALS (7 sets, daily range): BP systolic 101–125; BP diastolic 69–95
[2017-04-02 05:06] LABS: BASOPHILS 0.2 % (0-2); EOSINOPHILS 1.9 % (0-7); HEMATOCRIT 35.7 % (42.0-54.0); HEMOGLOBIN 11.9 g/dL (13.5-17.5); LYMPHOCYTES 15.7 % (15-50); MCH 31.6 pg (26.0-34.0); MCHC 33.3 g/dL (31.0-37.0); MCV 94.7 fL (80.0-100.0); MEAN PLATELET VOLUME 10.7 fL (7.4-10.4); MONOCYTES 10.3 % (2-11); NEUTROPHILS 71.9 % (40-80); PLATELET COUNT 177 10x3/uL (130-400); RBC 3.77 10x6/uL (4.20-6.10); RDW 13.7 % (11.5-14.5); WBC 5.7 10x3/uL (4.8-10.8)
--- NOTE | 2017-04-02 05:14 | NUR ---
PT LYING IN BED, AWAKE, ALERT, DENIES ANY NEEDS. CONTINUE TO MONITOR CLOSELY.
[2017-04-02 05:30] LABS: ALBUMIN 2.9 g/dL (3.4-5.0); ANION GAP 13.1 mmol/L (8-16); BILIRUBIN - TOTAL 0.6 mg/dL (0.2-1.3); CALCIUM 8.6 mg/dL (8.5-10.1); CARBON DIOXIDE 24.3 mmol/L (21.0-32.0); CREATININE - SERUM 1.3 mg/dL (0.6-1.3); POTASSIUM - SERUM 3.4 mmol/L (3.5-5.1); PROTEIN - SERUM 5.8 g/dL (6.4-8.2)
--- NOTE | 2017-04-02 12:43 | NUR ---
TELEMETRY CAF. NITRO GIVEN SL FOR C/O CHEST DISCOMFORT. WILL MONITOR.
--- NOTE | 2017-04-02 16:05 | NUR ---
TELEMETRY CAF. JOSEPH GTT DCD. WILL CONT. PLAN OF CARE.
--- NOTE | 2017-04-02 20:59 | NUR ---
HS MEDS GIVEN WITH FRESH ICE WATER, PT DENEIS PAIN OR NEEDS, BED LOW, CL IN REACH.
--- NOTE | 2017-04-03 00:12 | NUR ---
MEDICAL SALES REPRESENTATIVE AT BEDSIDE, CALL LIGHT IN REACH. WILL CONTINUE WITH PLAN OF CARE. 110 UCAF ON TELEMETRY
--- NOTE | 2017-04-03 01:50 | NUR ---
RESTING WITH EYES CLOSED, RESPERATIONS EVEN, NO S/S DISTRESS NOTED.
[2017-04-03 02:45] VITALS: BP 130/70
[2017-04-03 04:42] VITALS: BP 120/67
[2017-04-03 06:33] LABS: BASOPHILS 0.3 % (0-2); EOSINOPHILS 1.4 % (0-7); HEMATOCRIT 36.1 % (42.0-54.0); HEMOGLOBIN 12.1 g/dL (13.5-17.5); LYMPHOCYTES 14.6 % (15-50); MCH 31.7 pg (26.0-34.0); MCHC 33.5 g/dL (31.0-37.0); MCV 94.5 fL (80.0-100.0); MEAN PLATELET VOLUME 10.5 fL (7.4-10.4); MONOCYTES 7.7 % (2-11); PLATELET COUNT 168 10x3/uL (130-400); RBC 3.82 10x6/uL (4.20-6.10); RDW 13.8 % (11.5-14.5); WBC 6.2 10x3/uL (4.8-10.8)
[2017-04-03 07:12] LABS: ANION GAP 12.3 mmol/L (8-16); BILIRUBIN - TOTAL 0.51 mg/dL (0.2-1.3); CALCIUM 8.7 mg/dL (8.5-10.1); CARBON DIOXIDE 25.6 mmol/L (21.0-32.0); CREATININE - SERUM 1.1 mg/dL (0.6-1.3); POTASSIUM - SERUM 3.9 mmol/L (3.5-5.1); PROTEIN - SERUM 6.1 g/dL (6.4-8.2)
--- NOTE | 2017-04-03 07:30 | NUR ---
RECEIVED PT IN BED AAO X4 RESP UNLABORED DENIES ANY NEEDS OR DISCOMFORT AT THIS TIME
[2017-04-03 09:45] VITALS: BP 142/85
[2017-04-03 12:30] VITALS: BP 122/78
[2017-04-03 16:51] VITALS: BP 137/96
[2017-04-03 20:00] VITALS: BP 134/93
--- NOTE | 2017-04-03 21:35 | NUR ---
HS MEDS GIVEN WITH FRESH ICE WATER, PT DENIES PAIN OR NEEDS, BED LOW, CL IN REACH.
[2017-04-04] VITALS: BP 150/99
--- NOTE | 2017-04-04 04:54 | NUR ---
PT ASLEEP. RESPIRATIONS ARE RRR. PT HAS NO S/S OF DISTRESS. O2 1L NC. BED LOW AND CALL LIGHT IN REACH. WILL CPOC
[2017-04-04 06:52] LABS: BASOPHILS 0.2 % (0-2); EOSINOPHILS 1.4 % (0-7); HEMATOCRIT 34.9 % (42.0-54.0); HEMOGLOBIN 11.6 g/dL (13.5-17.5); IMMATURE GRANULOCYTES 0.2 % (0-5); LYMPHOCYTES 13.2 % (15-50); MCH 31.7 pg (26.0-34.0); MCHC 33.2 g/dL (31.0-37.0); MCV 95.4 fL (80.0-100.0); MONOCYTES 8.4 % (2-11); NEUTROPHILS 76.6 % (40-80); PLATELET COUNT 170 10x3/uL (130-400); RBC 3.66 10x6/uL (4.20-6.10); RDW 13.7 % (11.5-14.5); WBC 6.5 10x3/uL (4.8-10.8)
[2017-04-04 07:08] LABS: ALBUMIN 2.8 g/dL (3.4-5.0); ANION GAP 11.3 mmol/L (8-16); BILIRUBIN - TOTAL 0.34 mg/dL (0.2-1.3); CALCIUM 8.4 mg/dL (8.5-10.1); CARBON DIOXIDE 26.7 mmol/L (21.0-32.0); CREATININE - SERUM 1.1 mg/dL (0.6-1.3); PROTEIN - SERUM 5.7 g/dL (6.4-8.2)
--- NOTE | 2017-04-04 07:30 | NUR ---
RECEIVED PT IN BED AAOX4 RESP UNLABORED DENIES ANY NEEDS OR DISCOMFORT AT THIS TIME NAD NOTED
[2017-04-04 08:40] VITALS: BP 139/96
[2017-04-04 12:30] VITALS: BP 142/92
[2017-04-04 12:38] VITALS: Ht 172.7 cm; Wt 98.8 kg
[2017-04-04 15:51] VITALS: BP 130/96
[2017-04-04 20:00] VITALS: BP 154/109
[2017-04-05] VITALS: BP 148/90
[2017-04-05 06:02] LABS: BASOPHILS 0.1 % (0-2); EOSINOPHILS 1.3 % (0-7); HEMATOCRIT 36.7 % (42.0-54.0); HEMOGLOBIN 12.2 g/dL (13.5-17.5); IMMATURE GRANULOCYTES 0.2 % (0-5); LYMPHOCYTES 11.9 % (15-50); MCH 31.4 pg (26.0-34.0); MCHC 33.2 g/dL (31.0-37.0); MCV 94.6 fL (80.0-100.0); MEAN PLATELET VOLUME 10.1 fL (7.4-10.4); MONOCYTES 6.5 % (2-11); PLATELET COUNT 177 10x3/uL (130-400); RBC 3.88 10x6/uL (4.20-6.10); RDW 13.8 % (11.5-14.5)
[2017-04-05 06:17] LABS: WBC 8.5 10x3/uL (4.8-10.8)
[2017-04-05 06:31] LABS: ANION GAP 11.4 mmol/L (8-16); BILIRUBIN - TOTAL 0.4 mg/dL (0.2-1.3); CALCIUM 8.7 mg/dL (8.5-10.1); CARBON DIOXIDE 27.3 mmol/L (21.0-32.0); CREATININE - SERUM 1.3 mg/dL (0.6-1.3); POTASSIUM - SERUM 3.7 mmol/L (3.5-5.1)
[2017-04-05 08:22] VITALS: BP 147/99
--- NOTE | 2017-04-05 08:42 | NUR ---
DR ASHLEY NOTIFIED OR [facility] HR 159. NEW ORDERS GIVE. UP TO CHAIR WITH CALL LIGHT IN REACH. WILL MONITOR.
--- NOTE | 2017-04-05 09:53 | NUR ---
TELEMETRY CAF. HR 75.
[2017-04-05 11:23] VITALS: BP 104/69
[2017-04-05 15:40] VITALS: BP 128/91
[2017-04-05 20:10] VITALS: BP 134/82
[2017-04-05 23:44] VITALS: BP 135/94
[2017-04-06 04:24] VITALS: BP 146/88
--- NOTE | 2017-04-06 05:30 | NUR ---
PT RESTING WELL THIS SHIFT WITHOUT C/O OR DISTRESS NOTED. CALL LIGHT WITHIN REACH. WILL CONT TO MONITOR.
[2017-04-06 06:44] LABS: BASOPHILS 0.1 % (0-2); EOSINOPHILS 0.7 % (0-7); HEMATOCRIT 34.6 % (42.0-54.0); HEMOGLOBIN 11.5 g/dL (13.5-17.5); IMMATURE GRANULOCYTES 0.3 % (0-5); LYMPHOCYTES 12.3 % (15-50); MCH 31.2 pg (26.0-34.0); MCHC 33.2 g/dL (31.0-37.0); MCV 93.8 fL (80.0-100.0); MEAN PLATELET VOLUME 10.5 fL (7.4-10.4); MONOCYTES 9.2 % (2-11); NEUTROPHILS 77.4 % (40-80); PLATELET COUNT 180 10x3/uL (130-400); RBC 3.69 10x6/uL (4.20-6.10); RDW 13.8 % (11.5-14.5); WBC 7.1 10x3/uL (4.8-10.8)
[2017-04-06 07:03] LABS: ALBUMIN 2.8 g/dL (3.4-5.0); ANION GAP 13.9 mmol/L (8-16); BILIRUBIN - TOTAL 0.5 mg/dL (0.2-1.3); CALCIUM 8.4 mg/dL (8.5-10.1); CREATININE - SERUM 1.2 mg/dL (0.6-1.3); POTASSIUM - SERUM 3.9 mmol/L (3.5-5.1); PROTEIN - SERUM 5.6 g/dL (6.4-8.2)
--- NOTE | 2017-04-06 10:38 | NUR ---
TELEMETRY CAF. NO C/O VOICED. CALL LIGHT IN REACH. WILL CONT. PLAN OF CARE.
[2017-04-06] MEDS ORDERED: XARELTO20 MG PO (11:15)
[2017-04-06] MEDS ORDERED: COREG12.5 MG PO (11:16)
[2017-04-06] MEDS ORDERED: ALDACTONE25 MG PO (11:17)
[2017-04-06] MEDS ORDERED: LANOXIN250 MCG PO (11:17)
[2017-04-06] MEDS ORDERED: CARDIZEM 90 MG90 MG PO (11:17)
[2017-04-06 12:04] VITALS: BP 140/88
--- NOTE | 2017-04-06 14:03 | NUR ---
IV AND TELEMETRY DCD. DC PLANS GIVEN. UNDERSTANDING VOICED. ESCORTED TO CAR BY W/C.
[2017-04-28] MEDS ORDERED: BETAPACE 80 MG80 MG PO (10:48)
--- NOTE | 2017-05-06 08:55 | EC ---
PATIENT:SAMMI EASTON DATE OF SERVICE: 03/31/17 SEX: M MEDICAL RECORD: [id number] DATE OF : 50 LOCATION:D. D.211 AGE OF PATIENT: 66 ADMISSION DATE: 03/31/17 REFERRING PHYSICIAN: INTERPRETING PHYSICIAN: SY ASHLEY MD ECHOCARDIOGRAM REPORT ECHO CHARGES 4 ECHO COMPLETE CLINICAL DIAGNOSIS: A-FIB ECHOCARDIOGRAPHIC MEASUREMENTS (adult normal given) AC root (d.<3.7cm) 3.0 cm LV Septum d (<1.2 cm> 1.1 cm Valve Excursion 1.8 cm LV Septum (systole) 1.9 cm Left Atria (s.<4.0cm> 4.6 cm LVPW d(<1.2cm) 1.1 cm RV (d.<2.3cm) 2.8 cm LVPW (sytole) 1.9 cm LV diastole(<5.6CM) 7.2 cm MV E-F(>70mm/sec) cm LV systole 5.2 cm LVOT Diameter 1.9 cm MV exc.(>10mm) cm Est.ejection fraction (50-75%) % Pericardial Effusion N DOPPLER: LVIT cm/sec A cm/sec E 165 cm/sec LA cm/sec RVSP 48.3 mmHg LVOT 76.0 cm/sec AOP1/2T m/s Asc. Ao 128 cm/sec RVOT 48.0 cm/sec RA cm/sec PA 88.0 cm/sec AV Gradient Peak 6.6 mmHg AV Mean 3.4 mmHg AV Area 1.7 cm MV Gradient Peak 10.1 mmHg MV Mean 3.2 mmHg MV Area cm COMMENTS: Oracle Brm Developer: Andreea BOWDENOE Guest Request Runner: 4 Dr. Ashley TAPE# PACS DATE OF SERVICE: 04/05/2017 PROCEDURE: Transthoracic echocardiogram. FINDINGS: 1. Left ventricle has vdlh-pj-yfpixzul left ventricular hypertrophy. Inflow characteristics are not helpful because of atrial fibrillation. The patient does have regional wall motion abnormalities. Overall, ejection fraction is 35% to 40%. There is inferior hypokinesis that is moderate. There is mild lateral hypokinesis. The left ventricle itself is enlarged at 7.2 cm. ECHOCARDIOGRAM REPORT [id number] SAMMI EASTON 2. Mitral valve shows severe mitral regurgitation. 3. The left atrium is moderately to severely dilated. 4. The right atrium is moderate to severely dilated. 5. The right ventricle is moderately dilated with good function. 6. The tricuspid valve has moderate tricuspid regurgitation with an RVSP of 48 mmHg. 7. The interatrial septum is grossly intact. 8. The pericardium has no pericardial effusion. CONCLUSIONS: The patient has evidence of regional wall motion abnormalities as well as dilated ischemic and valvular cardiomyopathy with ejection fraction in the 35-40% with severe mitral regurgitation. TRANSINT:[id number] Voice Confirmation ID: [id number] DOCUMENT ID: [id number] 04/16/2017 Edited to correct date of service, dmm. SY ASHLEY MD at 0855 CC: [id number] DICTATION DATE: 04/08/17 07 WIRE PRODUCTS INSPECTOR: 04/08/17 0751 DIS IN 04/06/17 [facility] [address] [place] [address]
== END 2017-04-06 14:04 | disposition home or self-care (01) | DRG 308 ==
LOC: D.ER 12:31 → D.M2 16:20
PROVIDERS: Emergency Medicine; ADMIT Emergency Medicine
DX: I48.91 Unspecified atrial fibrillation (principal); I50.23 Acute on chronic systolic (congestive) heart failure; I42.9 Cardiomyopathy, unspecified; I11.0 Hypertensive heart disease with heart failure; E78.5 Hyperlipidemia, unspecified; I25.10 Atherosclerotic heart disease of native coronary artery without angina pectoris

== ENCOUNTER → 2017-04-28 10:01 | Outpatient (CLI) | payer MEDICARE ==
[~2017-04-28] VITALS: Ht 172.7 cm; Wt 95.5 kg
--- NOTE | ~2017-04-28 | HEMODYNAMI ---
PATIENT:SAMMI EASTON MEDICAL RECORD: [id number] : 50 LOCATION:D.CAT ADMISSION DATE: 04/28/17 Generatedon:04/28/201712:34 Patient name: SAMMI EASTON Patient #: [id number] : 1950 Date of study: 04/28/2017 Page: Of Hemodynamic Procedure Report Patient Data Patient Demographics Procedure consent was obtained First Name: SAMMI Gender: Male Last Name: JEMMA : 1950 Middle Initial: SPRING Age: 66 year(s) Patient #: [id number] Race: SSN: [id number] Additional ID: [id number] Contact details Address: [address] [place] [address] State: [place] City: [place] Zip code: [address] Past Medical History Allergies Allergen Reaction Date Comments Reported Other allergy 08/20/2016 PCN Other allergy 04/28/2017 PCN Admission Admission Data Admission Date: 04/28/2017 Admission Time: 10:01 Height (in.): 70 BSA: 2.11 (m2) Height (cm.): 177.8 BMI: 29.56 (kg/m2) Weight (lbs.): 206 Weight (kg.): 93.44 Procedure Procedure Types Cath Procedure Diagnostic Procedure [facility] PCI Procedure PTCA Miscellaneous Procedures Moderate Sedation up to 15 minutes Procedure Description Procedure Date Procedure Date: 04/28/2017 Procedure Start Time: 12:13 Procedure End Time: 12:31 Procedure Staff Name Function Tanner Snow MD Performing Physician Gracie Orourke RT Monitor Mickie Dillon RT Scrub Pratibha Osman RN Nurse Mark Rhoades RN Upper Marker Sammi Montaño MD Additional personnel Procedure Data Cath Procedure Fluoroscopy Diagnostic fluoroscopy Total fluoroscopy Time: 4 time: 4 min min Diagnostic fluoroscopy Total fluoroscopy dose: 751 dose: 751 mGy mGy Contrast Material Contrast Material Type Amount (ml) Isovue 300 84 Entry Location Entry Primary Successful Side Size Upsize Upsize Entry Closure Succes sful Closure Location (Fr) 1 (Fr) 2 (Fr) Remarks Device Remarks Femoral Right 5 Fr 6 Fr artery Short Estimated blood loss: 10 ml Diagnostic catheters Device Type Used For End Catheter Placement MULTIPACK Pigtail 5 Fr Procedure catheter MULTIPACK JL 4.0 5Fr Procedure catheter MULTIPACK 3DRC 5Fr Procedure catheter Procedure Complications No complications Procedure Medications Medication Administration Route Dosage 0.9% NaCl I.V. 100 ml/hr Lidocaine 2% added to field 20 Heparin Flush Bag added to field 2 bags (1000units/500ml NS) Oxygen NC 2 l/min Refer to Anesthesia Notes for Sedation Medications Heparin Bolus I.V. 4000 units Hemodynamics Rest BSA: 2.11 (m2) O2 Consumption: Estimated: 286.96 (ml/min) O2 Consumption indexed : Estimated:136 (ml/min/m) Pre Cath Intra NCS Post Cath Vital Signs Time Heart Resp SPO2 etCO2 NIBP (mmHg) Rhythm Pain Sedation Rate (ipm) (%) (mmHg) Status Level (bpm) 11:58:45 56 15 98 0 142/94(127) NSR 0 (11) 10(A) , No pain 12:03:01 57 15 100 30.6 139/86(104) NSR 0 (11) 10(A) , No pain 12:07:15 54 20 99 23.1 135/89(113) NSR 0 (11) 10(A) , No pain 12:11:24 65 17 98 24.6 107/95(106) NSR 0 (11) 10(A) , No pain 12:15:28 68 19 95 0 117/78(95) NSR 0 (11) 9(A) , No pain 12:20:33 58 15 96 11.2 118/67(94) NSR 0 (11) 9(A) , No pain 12:24:41 56 16 95 12.7 111/66(89) NSR 0 (11) 9(A) , No pain 12:28:45 52 15 97 24.6 108/63(87) NSR 0 (11) 10(A) , No pain Medications Time Medication Route Dose Verified Delivered Reason Not es Effectiveness by by 12:01:56 0.9% NaCl I.V. 100ml/hr Tanner Mckinnon used for Edy Osman croze cutter 12:02:12 Lidocaine 2% added 20ml Tanner Hart for local to vial Edy Snow MD anesthetic field 12:02:19 Heparin Flush added 2 bags Tanner Hart used for Bag to Edy Snow MD procedure (1000units/500ml field NS) 12:02:32 Oxygen NC 2 l/min Tanner Mckinnon Per physician Edy Osman RN 12:02:51 Refer to Tanner Hart Anesthesia Notes Edy Snow MD for Sedation Medications 12:21:34 Heparin Bolus I.V. 4000 Tanner Mckinnon for rosemary ified units Edy Osman RN anticoagulation by Procedure Log Time Note 11:44:10 Patient Height : 70 inches 11:44:29 Patient Weight : 206 lbs 11:45:06 Diagnostic Cath status Elective 11:45:11 Mark Rhoades RN sent for patient. Start room use. 11:45:12 Time tracking: Regular hours 11:45:17 Plan of Care:Hemodynamics will remain stable., Cardiac rhythm will remain stable., Comfort level will be maintained., Respiratory function will remain adequate., Patient/ family verbilizes understanding of procedure., Procedure tolerated without complication., Recovers from procedure without complications.. 11:50:08 Patient received from Pre/Post Procedure Room to CCL 2 Alert and oriented. Tansferred to table in Supine position. 11:50:09 Warm blankets applied, and jr hugger turned on for patient comfort. 11:50:10 Correct patient and procedure confirmed by team. 11:50:11 Signed procedure consent form obtained from patient. 11:51:35 H&P Date Dictated: 04/23/2017 Within 30 days and on chart., H&P Addendum completed by physician on day of procedure. (MUST COMPLETE FOR ALL OUTPATIENTS). 11:51:37 Pre-procedure instructions explained to patient. 11:51:39 Family in waiting room. 11:51:40 Patient NPO since Midnight. 11:51:56 Patient allergic to Other allergyPCN 11:51:59 Is the patient allergic to Iodine/contrast media? No. 11:52:02 Is patient on blood thinner?Yes 11:52:04 Patient diabetic? No. 11:52:09 Snore? Yes 11:52:11 Sleep apnea? No 11:52:19 Dentures? Yes removed\ 11:52:25 Patient pain scale 0/10 ?. 11:52:52 ACC The patient was administered the following blood thiners within the last 24 hours: ACCPlavix 11:53:07 IV patent on arrival in left forearm with 0.9% NaCl at [facility]. 11:53:26 Lab results completed and on chart. 11:53:30 Right groin area was prepped with chlora-prep and draped in sterile fashion 11:53:31 Alarms reviewed by R. N. 11:53:31 Sharps counted by scrub and verified by R.N. 11:57:47 Vital chart was started 12:00:46 Physician arrived 12:00:47 --------ALL STOP TIME OUT------ 12:00:49 Final Timeout: patient, procedure, and site verified with staff and physician. All members of the team are in agreement. 12:00:52 Right groin site verified by team. 12:01:10 Physical assessment completed. ASA score P 2 - A patient with mild systemic disease as per Tanner Snow MD. 12:01:17 Sedation plan: IV Moderate Sedation Medication:Versed, Fentanyl 12:01:46 Use device set Femoral Dx 12:01:53 Quick Combo opened to sterile field. 12:01:54 ACIST Syringe (10024) opened to sterile field. 12:01:55 Bag Decanter (2002S) opened to sterile field. 12:01:55 Medline Cath Pack ([id number]) opened to sterile field. 12:01:56 0.9% NaCl 100ml/hr I.V. was administered by Pratibha Osman RN; used for procedure; 12:01:56 SHEATH 5FR Palisades (ERY567) opened to sterile field. 12:01:57 St Ever 260cm J .035 wire opened to sterile field. 12:01:58 ACIST Hand Control (27973) opened to sterile field. 12:01:58 ACIST Manifold (81477) opened to sterile field. 12:01:59 DIAGNOSTIC Multipack 5Fr catheter set ([id number]) opened to sterile field. 12:01:59 Tegaderm 4 x 4 (1626W) opened to sterile field. 12:02:00 PERCUTANEOUS ENTRY 19GA needle opened to sterile field. 12:02:12 Lidocaine 2% 20ml vial added to field was administered by Tanner Snow MD; for local anesthetic; 12:02:17 Quick combo pads placed on patients chest and back. 12:02:19 Heparin Flush Bag (1000units/500ml NS) 2 bags added to field was administered by Tanner Snow MD; used for procedure; 12:02:32 Oxygen 2 l/min NC was administered by Pratibha Osman RN; Per physician; 12::51 Refer to Anesthesia Notes for Sedation Medications was administered by Tanner Snow MD; ; 12:07:49 Zero performed for pressure channel P1 12:10: Sammi Montaño MD present and monitoring patient for TIVA. 12:11:27 Procedure started. 12:11:27 Full Disclosure recording started 12:12:51 Defibrillator synced and charged to 200 Joules. 12:13:09 Shock delivered. 12:13:39 Patient cardioverted to sinus rhythm . 12:13:57 Local anesthetic to right femoral artery with Lidocaine 2% by Tanner Snow MD.INITIAL ACCESS ONLY 12:14:46 A 5 Fr sheath was inserted into the Right Femoral artery 12:15:46 A MULTIPACK Pigtail 5 Fr catheter was advanced over the wire and used for Procedure. 12:15:51 LV angiography performed. 12:16:01 EF : 20 % 12:16:05 Catheter removed. 12:16:27 A MULTIPACK JL 4.0 5Fr catheter was advanced over the wire and used for Procedure. 12:16:42 LCA angiography performed. 12:17:23 Catheter removed. 12:17:36 A MULTIPACK 3DRC 5Fr catheter was advanced over the wire and used for Procedure. 12:18:37 Catheter removed. 12:19:40 GUIDE 5FR AR 2.0 catheter ([id number]) opened to sterile field. 12:19:46 SHEATH 6FR Palisades (HJA948) opened to sterile field. 12:19:47 INFLATOR Merit BasixCompak Inflation Kit (RV4284) opened to sterile field. 12:19:49 Mart Whisper J 300cm 0.014 guide wire opened to sterile field. 12:20:26 Sheath upsized to a 6 Fr Short. 12:21:29 6 Fr XBLAD 4 guide catheter was inserted over the wire 12:21:32 Whisper wire advanced. 12::34 Heparin Bolus 4000 units I.V. was administered by Pratibha Osman RN; for anticoagulation; verified by 12::49 Inflation number: 1 A EUPHORA 2.5 x 20 Balloon ([id number]) was prepped and advanced across the Ramus, then inflated to 13 AL for 0:01 (min:sec). 12:23:54 Inflation number: 2 The EUPHORA 2.5 x 20 Balloon ([id number]) was reinflated across the Ramus, to 17 AL for 0:00 (min:sec). 12:24:44 Balloon removed over the wire. 12:24:44 Wire removed. 12:24:45 Guide catheter removed. 12:25:07 Procedure ended.(Physican Out) 12:26:00 Fluoroscopy time 04.00 minutes. 12:26:05 Fluoroscopy dose: 751 mGy 12:26:05 Flurop Dose total: 751 12:27:07 Contrast amount:Isovue 300 84ml. 12:27:08 Sharps counted by scrub and verified by R.N. 12:27:12 Insertion/operative site no bleeding no hematoma. 12:27:19 Post right femoral artery:stable 12:27:26 Post Procedure Pulses reassessed and unchanged 12::31 Post-procedure physical assessment completed. ASA score P 2 - A patient with mild systemic disease as per Tanner Snow MD. 12:27:35 Post procedure rhythm: sinus rhythm 12::38 Estimated blood loss: 10 ml 12:27:40 Post procedure instruction explained to patient.Patient verbalizes understanding. 12:28:10 Procedure type changed to Cath procedure, Diagnostic procedure, LHC, PCI procedure, PTCA, Miscellaneous Procedures, Moderate Sedation up to 15 minutes 12:28:14 Procedure and supply charges have been captured, reviewed, submitted and are correct. 12::30 Procedure Complication : No complications 12::33 Vital chart was stopped 12::37 See physician's report for complete and final results. 12::39 Report given to Pre/Post Procedure Room. 12::44 Patient transfered to Pre/Post Procedure Room with Stretcher. 12::46 Procedure ended. 12::46 Full Disclosure recording stopped 12:31:50 End room use (Document Last) Intervention Summary Intervention Notes Time ActionType Lesion and Equipment Action# Pressure Duration Attributes Used 12:23:49 Inflate Ramus EUPHORA 1 13 00:01 balloon 2.5 x 20 Balloon ([id number]) 12:23:54 Reinflate Ramus EUPHORA 2 17 00:00 balloon 2.5 x 20 Balloon ([id number]) Device Usage Item Name Manufacture Quantity Catalog Hospital Part Current Minim al Lot# / Number Charge Number Stock Stock Serial# Code Quick Combo Edge Systems 1 [id number] 897909 034912 410088 5 ACIST Acist 1 30678 050472 506355 753481 20 Syringe Medical (04658) Systems Inc Bag Decanter Microtek 1 2001S 750627 20386 963618 5 (2001S) Medical Inc. Medline Cath Cardinal 1 [id number] 394705 30327 727245 5 mChron ([id number]) SHEATH 5FR Terumo 1 YCY327 364302 938789 031821 40 Palisades (ZNB197) DIAGNOSTIC St Ever 1 386241 473716 732635 261100 30 WIRE .035 260cm J wire (205554) ACIST Hand Acist 1 49802 107742 852313 428519 5 Control Medical (07548) Systems Inc ACIST Acist 1 75876 648440 081335 605092 5 Manifold Medical (00909) Systems Inc DIAGNOSTIC Cardinal 1 DQ4659 615142 19921 803667 30 Multipack Health 5Fr catheter set (JF6108) Tegaderm 4 x 3M 1 1626W 396519 606051 358412 5 4 (1626W) PERCUTANEOUS Cook Medical 1 H26529 357089 819290 5 ENTRY 19GA needle MULTIPACK Cardinal 1 324907 5 Pigtail 5 Fr Health catheter MULTIPACK JL Cardinal 1 012643 5 4.0 5Fr Health catheter MULTIPACK Cardinal 1 624941 5 3DRC 5Fr Health catheter GUIDE 5FR AR Medtronic 1 [id number] 470492 180177 963519 1 2.0 catheter ([id number]) SHEATH 6FR Terumo 1 DKM523 782491 542290 366636 40 Palisades (XPF661) INFLATOR [facility] 1 JG7708 041368 877394 984921 15 [facility] BasixCompak Inflation Kit (XL4159) WHISPER Mart 1 [id number] 120355 876692 433081 5 300cm guide Vascular wire ([id number]) EUPHORA 2.5 Medtronic 1 [id number] 059423 008196 268507 5 [id number] x 20 Balloon ([id number]) Signature Audit [place] Stage Time Signature Unsigned Intra-Procedure 04/28/2017 Gracie Orourke 12:34:27 PM RT(R) Signatures Monitor : Gracie Orourke Signature : RT Date : Time : [address] [place] [address]
[~2017-04-28 10:01] MED LIST changes: +ALDACTONE25 MG PO; +BETAPACE 80 MG80 MG PO; +CARDIZEM 90 MG90 MG PO; +K-TAB10 MEQ PO; +LAMISIL250 MG PO; +LANOXIN250 MCG PO; +NIFEDIPINE ER60 MG PO; +NITROSTAT0.4 MG SL; +XARELTO20 MG PO
[2017-04-28 10:57] VITALS: BP 157/99; Ht 172.7 cm; Wt 95.5 kg
[2017-04-28 11:04] LABS: BASOPHILS 0.1 % (0-2); EOSINOPHILS 2.1 % (0-7); HEMATOCRIT 44.2 % (42.0-54.0); HEMOGLOBIN 15.2 g/dL (13.5-17.5); IMMATURE GRANULOCYTES 0.4 % (0-5); LYMPHOCYTES 15.4 % (15-50); MCH 31.3 pg (26.0-34.0); MCHC 34.4 g/dL (31.0-37.0); MCV 90.9 fL (80.0-100.0); MEAN PLATELET VOLUME 10.3 fL (7.4-10.4); MONOCYTES 9.2 % (2-11); NEUTROPHILS 72.8 % (40-80); PLATELET COUNT 162 10x3/uL (130-400); RBC 4.86 10x6/uL (4.20-6.10); RDW 13.5 % (11.5-14.5); WBC 8.5 10x3/uL (4.8-10.8)
[2017-04-28 11:25] LABS: ANION GAP 14.1 mmol/L (8-16); CALCIUM 8.8 mg/dL (8.5-10.1); CARBON DIOXIDE 24.4 mmol/L (21.0-32.0); CREATININE - SERUM 1.4 mg/dL (0.6-1.3); POTASSIUM - SERUM 4.5 mmol/L (3.5-5.1)
[2017-04-28 11:27] LABS: INR 1.24 (0.85-1.17); PROTIME 15.2 SECONDS (11.6-15.0)
--- NOTE | 2017-04-28 12:51 | NUR ---
RECIEVED TO ROOM VIA STRETCHER FROM CAT LAB WITH 6 FR EXOSEAL R/GROIN CDI NO BLEEDING NO HEMATOMA NOTED. INSTURCTED PATIENT TO KEEP HEAD FLAT ON PILLOW WITH RLE STRAIGHT
--- NOTE | 2017-04-28 13:06 | NUR ---
R/GROIN REMAINS STABLE WITH CHEST PAIN DENIED. VSS DR LLOYD AT BEDSIDE WITH PATIENT
--- NOTE | 2017-04-28 13:30 | NUR ---
1330 RESTING QUIETLY WITH CHEST PAIN DENIED VSS 6 FR EXOSEAL R/GROIN CDI 1400 R/GROIN REMAINS STABLE SOFT TO TOUCH WITH PULSES PRESENT VSS
--- NOTE | 2017-04-28 14:30 | NUR ---
RESTING QUIETLY WITH R/GROIN CDI NO BLEEDING NO HEMATOMA NOTED. FAMILY AT SIDE
--- NOTE | 2017-04-28 15:58 | NUR ---
6 FR EXOSEAL R/GROIN REMAINS CDI NO BLEEDING NO HEMATOMA NOTED. PATIENT REPOSITIONED TO SITTING WITH HOB UP 45 DEGREES SANDWICH AND SODA TO BEDSIDE
--- NOTE | 2017-04-28 16:28 | NUR ---
PIV REMOVED WITH DRESSING APPLIED. CHEST PAIN IS DENIED WITH NSR RATE 64. 6 FR EXOSEAL R/GROIN CDI NO BLEEDING NO HEMATOMA NOTED. PATIENT UP TO GET DRESSED FOR DISCHARGE HOME
--- NOTE | 2017-04-28 16:44 | NUR ---
VERBAL AND WRITTEN DISCHARGE GONE OVER WITH PATIENT AND BOTH VERBALIZED UNDERSTANDING. CHEST PAIN IS DENIED WITH 6 FR EXOSEAL R/GROIN CDI NO BLEEDING NO HEMATOMA NOTED. LEFT VIA WC TO PARKING FOR TRANSPORT HOME NO DISTRESS
--- NOTE | 2017-05-06 12:17 | OP ---
PATIENT NAME: SAMMI EASTON MEDICAL RECORD: [id number] :50 LOCATION:D.CAT ADMISSION DATE: SURGEON: HARSHIL LLOYD MD DATE OF OPERATION: 04/28/2017 PROCEDURES: 1. PTCA, ramus intermedius. 2. Left heart catheterization. 3. Selective coronary angiography. 4. Left ventriculogram. 5. DC cardioversion. INDICATION: Angina, coronary artery disease, and atrial fibrillation. PROCEDURE IN DETAIL: After informed consent was obtained and after detailed explanation of risks, benefits as well as alternative therapies, the patient elected to proceed with angiogram and cardioversion. The right femoral area was prepped and draped in normal sterile fashion. The right femoral artery was cannulated via modified Seldinger technique with placement of 6-Telugu sheath. All catheters exchanged through this sheath. FINDINGS: IV conscious sedation was performed per anesthesia. Continuous heart rate, O2 saturation, and blood pressure monitoring were all undertaken, all of which remained stable. He received one shock at 275 joules restoring sinus rhythm. FINDINGS: Left ventriculogram was performed in standard 30-degree WYLIE view reveals good cardiac wall motion throughout all segments. Overall ejection fraction 55%. SELECTIVE CORONARY ANGIOGRAPHY: 1. Left main is with no significant angiographic disease. 2. Left anterior descending has moderate irregularities, but no flow-limiting stenosis. 3. The left circumflex has a relatively large ramus intermedius with a previously placed stent with up to 80% in-stent restenosis, otherwise the circumflex and its branches have no significant disease. 4. The right coronary artery has moderate irregularities, but no flow-limiting stenosis. PTCA for in-stent restenosis of the ramus intermedius: The balloon used a 2.5 x 20 mm Euphora, multiple inflations were made up to 17 atmospheres. Result was 0% residual stenosis. OVERALL IMPRESSION: 1. Successful DC cardioversion from atrial fibrillation to sinus rhythm. 2. Successful percutaneous transluminal coronary angioplasty for in-stent restenosis of ramus intermedius going from 80% initial stenosis to 0% residual stenosis. TRANSINT:[id number] Voice Confirmation ID: [id number] DOCUMENT ID: [id number] OPERATIVE REPORT [id number] SAMMI EASTON HARSHIL LLOYD MD at 0676 CC: [id number] DICTATION DATE: 04/28/17 1232 MORTGAGE OR LOAN UNDERWRITER: 04/28/17 1259 DEP CLI 04/28/17 [place] [id number] [facility]901
== END | disposition home or self-care (01) ==
LOC: D.CATH 10:01
PROVIDERS: Internal Medicine Interventional Cardiology
DX: I48.91 Unspecified atrial fibrillation (principal); I10 Essential (primary) hypertension; I25.119 Atherosclerotic heart disease of native coronary artery with unspecified angina pectoris; Z95.5 Presence of coronary angioplasty implant and graft; Z01.812 Encounter for preprocedural laboratory examination

== ENCOUNTER → 2017-05-29 17:41 | Outpatient (CLI) | payer MEDICARE ==
[2017-04-28 10:57] VITALS: BMI 32.0
[2017-05-29 18:31] LABS: ANION GAP 13.8 mmol/L (8-16); CALCIUM 9.2 mg/dL (8.5-10.1); CARBON DIOXIDE 27.3 mmol/L (21.0-32.0); CREATININE - SERUM 1.4 mg/dL (0.6-1.3); DIGOXIN 0.32 ng/mL (0.90-2.00); POTASSIUM - SERUM 4.1 mmol/L (3.5-5.1)
== END | disposition home or self-care (01) ==
LOC: D.LABREF 17:41
PROVIDERS: Internal Medicine Interventional Cardiology
DX: I10 Essential (primary) hypertension (principal); I48.91 Unspecified atrial fibrillation

== ENCOUNTER 2018-01-30 08:45 | Outpatient (CLI) | payer MEDICARE ==
[~2018-01-30] VITALS: Ht 172.7 cm; Wt 95.5 kg
--- NOTE | ~2018-01-30 | HEMODYNAMI ---
PATIENT:SAMMI EASTON MEDICAL RECORD: [id number] : 50 LOCATION:DNORBERTO ADMISSION DATE: 01/30/18 Generatedon:01/30/201811:06 Patient name: SAMMI EASTON Patient #: [id number] : 1950 Date of study: 01/30/2018 Page: Of Hemodynamic Procedure Report Patient Data Patient Demographics Procedure consent was obtained First Name: SAMMI Gender: Male Last Name: JEMMA : 1950 Middle Initial: SPRING Age: 67 year(s) Patient #: [id number] Race: SSN: [id number] Additional ID: [id number] Contact details Address: [place] [address] State: [place] City: [place] Zip code: [address] Past Medical History Allergies Allergen Reaction Date Comments Reported Other allergy 08/20/2016 PCN Other allergy 04/28/2017 PCN Admission Admission Data Admission Date: 01/30/2018 Admission Time: 8:45 Procedure Procedure Types Cath Procedure Diagnostic Procedure LHC [facility] w/Coronaries FFR/IVUS Intra-Coronary IVUS Initial Sedation Charges Moderate Sedation up to 15 minutes PCI Procedure Coronary Stent Coronary Stent Initial Procedure Description Procedure Date Procedure Date: 01/30/2018 Procedure Start Time: 10:44 Procedure End Time: 11:06 Procedure Staff Name Function Tanner Snow MD Performing Physician Jo River RT Monitor Ashlyn Proctor RT Scrub Jose D Echevarria RN Nurse Home Carbone RT Founder And Chief Technical Officer Procedure Data Cath Procedure Fluoroscopy Diagnostic fluoroscopy Total fluoroscopy Time: 6.1 time: 6.1 min min Diagnostic fluoroscopy Total fluoroscopy dose: 892 dose: 892 mGy mGy Contrast Material Contrast Material Type Amount (ml) Isovue 300 108 Entry Location Entry Primary Successful Side Size Upsize Upsize Entry Closure Succes sful Closure Location (Fr) 1 (Fr) 2 (Fr) Remarks Device Remarks Femoral Right 5 Fr 6 Fr Exoseal artery Short Estimated blood loss: 10 ml Diagnostic catheters Device Type Used For End Catheter Placement MULTIPACK Pigtail 5 Fr LV Angiography catheter MULTIPACK JL 4.0 5Fr Left Coronary catheter Angiography MULTIPACK 3DRC 5Fr Right Coronary catheter Angiography DIAGNOSTIC AR 2 MOD 5 Fr Right Coronary catheter ([id number]) Angiography DIAGNOSTIC AL 2 5Fr Right Coronary catheter ([id number]) Angiography Procedure Complications No complications Procedure Medications Medication Administration Route Dosage 0.9% NaCl I.V. 100 ml/hr Oxygen etCO2 Nasal cannula 2 l/min Heparin Flush Bag added to field 2 bags (1000units/500ml NS) Lidocaine 2% added to field 20 Versed I.V. 1 mg Fentanyl I.V. 50 mcg Versed I.V. 1 mg Fentanyl I.V. 50 mcg Heparin Bolus I.V. 4000 units Integrilin (Bolus I.V. 8.5 ml 2mg/ml) Integrilin (Bolus wasted 1.5 ml 2mg/ml) Plavix P.O. 600 mg Hemodynamics Rest Heart Rate: 72 (bpm) Snapshots Pre Cath Intra NCS Post Cath Vital Signs Time Heart Resp SPO2 etCO2 NIBP Rhythm Pain Sedation Rate (ipm) (%) (mmHg) (mmHg) Status Level (bpm) 10:29:01 70 12 95 30.7 113/74(87) NSR 0 (11) 10(A) , No pain 10:33:39 72 13 98 30.8 111/72(83) NSR 0 (11) 10(A) , No pain 10:38:20 70 11 97 31.5 109/67(77) NSR 0 (11) 10(A) , No pain 10:43:03 70 10 97 33 103/62(88) NSR 0 (11) 10(A) , No pain 10:47:45 70 18 98 35.3 94/61(77) NSR 0 (11) 10(A) , No pain 10:52:26 70 18 97 26.2 99/62(84) NSR 0 (11) 9(A) , No pain 10:57:06 67 18 96 30.8 100/63(83) NSR 0 (11) 9(A) , No pain 11:01:49 71 7 98 34.5 109/60(81) NSR 0 (11) 10(A) , No pain Medications Time Medication Route Dose Verified Delivered Reason Notes Effectiveness by by 10:35:03 0.9% NaCl I.V. 100 Jose D Jose D Per physician ml/hr Wale Echevarria RN RN 10:35:14 Oxygen etCO2 2 Jose D Jose D Per physician Nasal l/min Wale Echevarria cannula RN RN 10:35:29 Heparin Flush added 2 Jose D Jose D used for Bag to bags Wale Echevarria procedure (1000units/500ml field RN RN NS) 10:35:40 Lidocaine 2% added 20ml Jose D Jose D for local to vial Wale Echevarria anesthetic field RN RN 10:42:23 Versed I.V. 1 mg Jose D Jose D for sedation Wale Echevarria RN RN 10:42:34 Fentanyl I.V. 50 Jose D Jose D for sedation mcg Wale Echevarria RN RN 10:52:46 Versed I.V. 1 mg Jose D Jose D for sedation Wale Echevarria RN RN 10:52:53 Fentanyl I.V. 50 Jose D Jose D for sedation mcg Wale Echevarria RN RN 10:55:48 Heparin Bolus I.V. 4000 Jose D Jose D for units Wale Echevarria anticoagulation RN RN 10:59:42 Integrilin I.V. 8.5 Jose D Jose D for (Bolus 2mg/ml) ml Wale Echevarria antiplatelet RN RN therapy 10:59:55 Integrilin wasted 1.5 Jose D Jose D to sharp's (Bolus 2mg/ml) ml Wale Echevarria RN RN 11:01:37 Plavix P.O. 600 Jose D Jose D for mg Wale Echevarria antiplatelet RN RN therapy Procedure Log Time Note 10:13:19 Home Carbone RT(R) sent for patient. Start room use. 10:13:20 Time tracking: Regular hours (M-F 7:00 - 5:00) 10:13:25 Plan of Care:Hemodynamics will remain stable., Cardiac rhythm will remain stable., Comfort level will be maintained., Respiratory function will remain adequate., Patient/ family verbilizes understanding of procedure., Procedure tolerated without complication., Recovers from procedure without complications.. 10:18:22 Patient received from Pre/Post Procedure Room to [facility] 1 Alert and oriented. Tansferred to table in Supine position. 10:18:24 Warm blankets applied, and jr hugger turned on for patient comfort. 10:18:24 Correct patient and procedure confirmed by team. 10:18:26 Signed procedure consent form obtained from patient. 10:18:27 ECG and BP/O2 sat monitors applied to patient. 10:19:55 Full Disclosure recording started 10:28:02 Vital chart was started 10:29:11 Rhythm: sinus rhythm 10:29:31 H&P Date Dictated: 01/28/2018 Within 30 days and on chart., H&P Addendum completed by physician on day of procedure. (MUST COMPLETE FOR ALL OUTPATIENTS). 10:29:32 Pre-procedure instructions explained to patient. 10:29:33 Pre-op teaching completed and patient verbalized understanding. 10:29:34 Family in patients room. 10:29:36 Patient NPO since Midnight. 10:29:47 Is the patient allergic to Iodine/contrast media? No. 10:29:49 Is patient on blood thinner?No 10:29:51 Patient diabetic? No. 10:29:54 Previous problem with sedation/anesthesia? No ? 10:29:56 Snore? Yes 10:29:57 Sleep apnea? No 10:29:57 Deviated septum? No 10:29:58 Opens mouth fully? Yes 10:29:59 Sticks out tongue? Yes 10:30:02 Airway obstruction? Yes COPD 10:30:09 Dentures? Yes IN 10:30:12 Pre procedure: right dorsailis pedis pulse 2+ Normal; easily identifiable; not easily obliterated 10:30:14 Patient pain scale 0/10 ?. 10:30:19 IV patent on arrival in left forearm with 0.9% NaCl at KVO. 10:30:21 Lab results completed and on chart. 10:30:25 Right groin area was prepped with chlora-prep and draped in sterile fashion 10:30:26 Alarms reviewed by R. N. 10:30:26 Sharps counted by scrub and verified by R.N. 10:30:29 Use device set Femoral Dx 10:30:30 ACIST Syringe (72388) opened to sterile field. 10:30:30 Bag Decanter (2001S) opened to sterile field. 10:30:31 Medline Cath Pack ([id number]) opened to sterile field. 10:30:31 DIAGNOSTIC WIRE .035 260cm J wire (775432) opened to sterile field. 10:30:32 ACIST Hand Control (69615) opened to sterile field. 10:30:33 ACIST Manifold (92390) opened to sterile field. 10:30:33 DIAGNOSTIC Multipack 5Fr catheter set ([id number]) opened to sterile field. 10:30:34 Tegaderm 4 x 4 (1626W) opened to sterile field. 10:30:35 SHEATH Prelude 5Fr 0.035 (WMZ-6K-16-035) opened to sterile field. 10:35:03 0.9% NaCl 100 ml/hr I.V. was administered by Jose D Echevarria RN; Per physician; 10:35:14 Oxygen 2 l/min etCO2 Nasal cannula was administered by Jose D Echevarria RN; Per physician; 10:35:29 Heparin Flush Bag (1000units/500ml NS) 2 bags added to field was administered by Jose D Echevarria RN; used for procedure; 10:35:40 Lidocaine 2% 20ml vial added to field was administered by Jose D Echevarria RN; for local anesthetic; 10:37:34 Baseline sample Acquired. 10:40:47 Final Timeout: patient, procedure, and site verified with staff and physician. All members of the team are in agreement. 10:40:49 Right groin site verified by team. 10:40:52 Physical assessment completed. ASA score P 2 - A patient with mild systemic disease as per Tanner Snow MD. 10:40:55 Sedation plan: IV Moderate Sedation Medication:Versed, Fentanyl 10:42:23 Versed 1 mg I.V. was administered by Jose D Echevarria RN; for sedation; 10:42:34 Fentanyl 50 mcg I.V. was administered by Jose D Echevarria RN; for sedation; 10:44:52 Procedure started. 10:44:59 Local anesthetic to right femoral artery with Lidocaine 2% by Tanner Snow MD.INITIAL ACCESS ONLY 10:45:21 A 5 Fr sheath was inserted into the Right Femoral artery 10:45:48 A MULTIPACK Pigtail 5 Fr catheter was advanced over the wire and used for LV Angiography. 10:46:42 LV gram done using WYLIE 10:46:48 Injector settings: Ml/sec: 10, Volume: 20, 10:46:54 EF : 55 % 10:46:56 Catheter removed. 10:47:04 A MULTIPACK JL 4.0 5Fr catheter was advanced over the wire and used for Left Coronary Angiography. 10:48:53 Catheter removed. 10:48:58 A MULTIPACK 3DRC 5Fr catheter was advanced over the wire and used for Right Coronary Angiography. unable to cannulate 10:49:02 Use device set TAUTH PCI 10:49:04 SHEATH Prelude 6Fr 0.035 (VNO-8O-43-035) opened to sterile field. 10:49:08 INFLATOR Merit BasixCompak (NI8606) opened to sterile field. 10:49:16 CHOICE PT Extra Support 182cm wire ([id number]) opened to sterile field. 10:51:01 Sheath upsized to a 6 Fr Short. 10:51:19 A DIAGNOSTIC AR 2 MOD 5 Fr catheter ([id number]) was advanced over the wire and used for Right Coronary Angiography. unable to cannulate 10:52:08 Catheter removed. 10:52:37 A DIAGNOSTIC AL 2 5Fr catheter ([id number]) was advanced over the wire and used for Right Coronary Angiography. 10:52:46 Versed 1 mg I.V. was administered by Jose D Echevarria RN; for sedation; 10:52:53 Fentanyl 50 mcg I.V. was administered by Jose D Echevarria RN; for sedation; 10:53:26 Catheter removed. 10:53:31 Coy [place] IVUS Catheter (39319A) opened to sterile field. 10:53:33 GUIDE 6FR XBLAD 3.5 catheter ([id number]) opened to sterile field. 10:54:02 6 Fr XBLAD 3.5 guide catheter was inserted over the wire 10:54:28 CHOICE PT ES wire advanced. 10:55:36 IVUS catheter advanced over wire. 10:55:45 IVUS pass to LAD lesion performed. 10:55:48 Heparin Bolus 4000 units I.V. was administered by Jose D Echevarria RN; for anticoagulation; 10:58:14 IVUS catheter removed over wire. 10:59:42 Integrilin (Bolus 2mg/ml) 8.5 ml I.V. was administered by Jose D Echevarria RN; for antiplatelet therapy; 10:59:55 Integrilin (Bolus 2mg/ml) 1.5 ml wasted was administered by Jose D Echevarria RN; to sharp's; 10:59:58 Place stent Inflation Number: 1 A BRYN RX 3.5 x 26 stent ([id number]) was prepped and advanced across the Mid LAD. The stent was deployed at 11 AL for 0:09 (min:sec). 11:00:17 Stent catheter was removed intact over wire. 11:00:18 Wire removed. 11:00:18 Guide catheter removed. 11:00:55 Sheath removed intact; hemostasis achieved with Exoseal to the Right Femoral artery. 11:00:57 Procedure ended.(Physican Out) 11:01:37 Plavix 600 mg P.O. was administered by Jose D Echevarria RN; for antiplatelet therapy; 11:02:07 Procedure type changed to Cath procedure, Diagnostic procedure, LHC, LHC w/Coronaries, FFR/IVUS, Intra-Coronary IVUS Initial, Sedation Charges, Moderate Sedation up to 15 minutes, PCI procedure, Coronary Stent, Coronary Stent Initial 11:02:14 Fluoroscopy time 06.10 minutes. 11:02:18 Flurop Dose total: 892 11:02:18 Fluoroscopy dose: 892 mGy 11:02:22 Contrast amount:Isovue 300 108ml. 11:02:23 Sharps counted by scrub and verified by R.N. 11:02:25 Insertion/operative site no bleeding no hematoma. 11:02:27 Post-op/insertion site Right Femoral artery dressed using a 4 x 4 and Tegaderm. 11:02:31 Post right femoral artery:stable, clean and dry 11:02:32 Post Procedure Pulses reassessed and unchanged 11:02:34 Post-procedure physical assessment completed. ASA score P 2 - A patient with mild systemic disease as per Tanner Snow MD. 11:02:45 Post procedure rhythm: unchanged. 11:02:47 Estimated blood loss: 10 ml 11:02:49 Post procedure instruction explained to patient.Patient verbalizes understanding. 11:02:49 Patient needs reinforcement of post procedure teaching. 11:02:53 Procedure Complication : No complications 11:02:55 See physician's report for complete and final results. 11:03:28 Procedure and supply charges have been captured, reviewed, submitted and are correct. 11:03:35 EXOSEAL 6Fr (EX600) opened to sterile field. 11:05:50 Vital chart was stopped 11:05:51 Report given to Pre/Post Procedure Room. 11:05:54 Patient transfered to Pre/Post Procedure Room with Stretcher. 11:06:02 Procedure ended. 11:06:02 Full Disclosure recording stopped 11:06:06 End room use (Document Last) Intervention Summary Intervention Notes Time ActionType Lesion and Equipment Used Action# Pressure Duration Attributes 10:59:58 Place stent Mid LAD BRYN RX 3.5 x 1 11 00:09 26 stent ([id number]) Device Usage Item Name Manufacture Quantity Catalog Number Hospital Part Current Minimal Lot# / Charge Number Stock Stock Serial# Code ACIST Syringe Acist 1 66346 434268 [id number] 20 (24278) Medical Systems Inc Bag Decanter Microtek 1 2001S 216517 14785 873462 5 () Medical Inc. Medline Cath Cardinal 1 [id number] 313025 49963 763449 5 Pack Health ([id number]) DIAGNOSTIC WIRE St Ever 1 580517 239550 708661 961309 30 .035 260cm J wire (068812) ACIST Hand Acist 1 04081 590989 542098 947666 5 Control (16620) Medical Systems Inc ACIST Manifold Acist 1 72313 331462 873333 575449 5 (78939) Medical Systems Inc DIAGNOSTIC Cardinal 1 [id number] 164908 42344 548287 30 Multipack 5Fr Health catheter set (KI7932) Tegaderm 4 x 4 3M 1 1626W 580657 789637 518025 5 (1626W) SHEATH Prelude Merit 1 XCS-8F-96-035 443960 435617 517965 5 5Fr 0.035 Medical (PIU-6U-00-035) MULTIPACK Cardinal 1 004951 5 Pigtail 5 Fr Health catheter MULTIPACK JL Cardinal 1 275075 5 4.0 5Fr Health catheter MULTIPACK 3DRC Cardinal 1 891403 5 5Fr catheter Health SHEATH Prelude Merit 1 EBF-0O-45-35 879598 2956098 144348 5 6Fr 0.035 Medical (ZRY-8J-22-035) INFLATOR Merit Merit 1 RQ7519 850106 035990 835823 15 Targeted Instant CommunicationsLifePoint HospitalsEmbrace (CX6927) CHOICE PT Extra [place] 1 [id number] 851334 982232 907314 5 Support 182cm Scientific wire ([id number]) DIAGNOSTIC AR 2 Cardinal 1 [id number] 538347 512018 385180 20 MOD 5 Fr Health catheter (530731G) DIAGNOSTIC AL 2 Cardinal 1 510176S 913893 628775 429660 15 5Fr catheter Health (391864O) Coy [place] 1 44875R 297484 874146 805598 8 [place] IVUS Catheter (95363N) GUIDE 6FR XBLAD Cardinal 1 [id number] 684354 156609 514083 10 3.5 catheter Health (46922403) BRYN RX 3.5 x Medtronic 1 [id number] 556459 7961151 837664 5 [id number] 26 stent ([id number]) EXOSEAL 6Fr Cardinal 1 EX600 368918 861559 459972 10 (EX600) Health Signature Audit [place] Stage Time Signature Unsigned Intra-Procedure 01/30/2018 Jo 11:06:24 AM Counts RT(R) Signatures Monitor : Jo Signature : Counts RT Date : Time : [address] [address]
--- NOTE | ~2018-01-30 | OP ---
PATIENT NAME: SAMMI EASTON MEDICAL RECORD: [id number] :50 LOCATION:D.CAT ADMISSION DATE: SURGEON: HARSHIL LLOYD MD DATE OF OPERATION: 01/30/2018 PROCEDURES: 1. PTCA stent LAD. 2. Intravascular ultrasound to LAD. 3. Left heart catheterization. 4. Selective coronary angiography. 5. Left ventriculogram. INDICATION: Angina and coronary artery disease. PROCEDURE IN DETAIL: After informed consent was obtained and after a detailed description of risks, benefits as well as alternative therapies, the patient elected to proceed with angiogram and angioplasty. The right femoral area was prepped and draped in normal sterile fashion. Right femoral artery was cannulated via modified Seldinger technique with placement of 6-Ukrainian sheath. All catheters exchanged through this sheath. FINDINGS: Left ventriculogram was performed in standard 30-degree WYLIE view, reveals good cardiac wall motion throughout all segments. Overall ejection fraction estimated 60%. SELECTIVE CORONARY ANGIOGRAPHY: 1. Left main is with no significant angiographic disease. 2. Left anterior descending has greater than 70% stenosis throughout the mid vessel confirmed by intravascular ultrasound. 3. Left circumflex is large, dominant with no significant disease. 4. Right coronary artery is small, nondominant, but does have a 95% stenosis in the mid vessel. PTCA STENT OF THE LAD: The stent used was a 3.5 x 26 mm [place]. Result was 0% residual stenosis. OVERALL IMPRESSION: Successful percutaneous transluminal coronary angioplasty stent of the left anterior descending going from greater than 70% initial stenosis to 0% residual. There is significant disease of the RCA, but this is a relatively small vessel. If he continues to have chest pain; however, the RCA can be addressed with a transcatheter revascularization. TRANSINT:[id number] Voice Confirmation ID: [id number] DOCUMENT ID: [id number] HARSHIL LLOYD MD at 1950 CC: [id number] DICTATION DATE: 01/30/18 1106 GHOST WRITER: 01/30/18 1113 DEP CLI 01/30/18 [facility] [address] [place] [address]
[2018-01-30 09:10] VITALS: BP 118/86; Ht 172.7 cm; Wt 95.5 kg
[2018-01-30 09:35] LABS: HEMATOCRIT 37.1 % (42.0-54.0); HEMOGLOBIN 13.3 g/dL (13.5-17.5); LYMPHOCYTES 21.3 % (15-50); MCH 32.5 pg (26.0-34.0); MCHC 35.8 g/dL (31.0-37.0); MCV 90.7 fL (80.0-100.0); MEAN PLATELET VOLUME 9.7 fL (7.4-10.4); NEUTROPHILS 72.6 % (40-80); PLATELET COUNT 166 10x3/uL (130-400); RBC 4.09 10x6/uL (4.20-6.10); WBC 7.7 10x3/uL (4.8-10.8)
[2018-01-30 09:55] LABS: CALCIUM 8.9 mg/dL (8.5-10.1); CARBON DIOXIDE 23.6 mmol/L (21.0-32.0); CREATININE - SERUM 1.5 mg/dL (0.6-1.3); POTASSIUM - SERUM 4.6 mmol/L (3.5-5.1)
[2018-01-30] MEDS ORDERED: PLAVIX75 MG PO (11:23)
== END 2018-01-30 14:40 | disposition home or self-care (01) ==
LOC: D.CATH 08:45
PROVIDERS: Internal Medicine Interventional Cardiology
DX: I25.119 Atherosclerotic heart disease of native coronary artery with unspecified angina pectoris (principal); Z01.812 Encounter for preprocedural laboratory examination
CPT/HCPCS: 92978; 93458; C9600

== ENCOUNTER → 2019-03-15 08:55 | Outpatient (CLI) | payer MEDICARE ==
[2018-01-30 09:10] VITALS: BMI 32.0
--- NOTE | 2019-03-23 11:41 | ST ---
PATIENT:SAMMI EASTON MEDICAL RECORD: [id number] SEX: M LOCATION:[facility] ORDER #: ADMISSION DATE: 03/15/19 AGE OF PATIENT: 68 REFERRING PHYSICIAN: INTERPRETING PHYSICIAN: HARSHIL LLOYD MD DATE OF SERVICE: 03/15/2019 Nuclear Stress Test INDICATIONS: Angina and coronary artery disease, shortness of breath, hypertension. He was exercised on standard Lexiscan protocol with 33 mCi of sestamibi injected at peak stress, 11 mCi were used previously for rest images. FINDINGS: Gated SPECT reveals preserved ejection fraction at 58%. However, there is decreased thickening and brightening throughout the inferior segments. SPECT Imaging: Cardiolite was used as myocardial perfusion agent. There was a fixed perfusion defect inferiorly as well as inferolaterally. There is no evidence of reversible ischemia and the remaining segments have homogeneous uptake at rest and stress. OVERALL IMPRESSION: This is an abnormal nuclear stress test only and that it shows a fixed perfusion defect inferiorly and inferolaterally compatible with previous inferolateral myocardial infarction. Gated SPECT reveals preserved ejection fraction at 58%. In this patient with a past history of coronary artery disease, current scan is quite stable. No significant ischemic burden is present and ejection fraction is preserved. Continue medical management of the coronary artery disease and cardiac risk factors. TRANSINT:[id number] Voice Confirmation ID: [id number] DOCUMENT ID: [id number] HARSHIL LLOYD MD at 1141 CC: TYREE VALLADARES [id number] DICTATION DATE: 03/16/19 1027 CASTING DIRECTOR: 03/17/19 0029 [facility] CLI 03/15/19 [place] [id number] [place] [address]
== END | disposition home or self-care (01) ==
LOC: D.HCCARDIO 08:55
PROVIDERS: ATTEND Internal Medicine Interventional Cardiology
DX: I25.119 Atherosclerotic heart disease of native coronary artery with unspecified angina pectoris (principal)

== ENCOUNTER 2020-08-28 15:49 | Inpatient (IN) | payer MEDICARE ==
[~2020-08-28] VITALS: Ht 172.7 cm; Wt 78.3 kg
--- NOTE | ~2020-08-28 | HEMODYNAMI ---
PATIENT:SAMMI EASTON MEDICAL RECORD: [id number] : 50 [id number] ADMISSION DATE: 08/28/20 Generatedon:115:08 Patient name: SAMMI EASTON Patient #: [id number] : 1950 Date of study: 08/29/2020 Page: Of Hemodynamic Procedure Report Patient Data Patient Demographics Procedure consent was obtained First Name: SAMMI Gender: Male Last Name: JEMMA : 1950 Middle Initial: SPRING Age: 69 year(s) Patient #: [id number] Race: SSN: [id number] Additional ID: [id number] Contact details Address: [address] [address] State: [place] City: [place] Zip code: [address] Past Medical History Allergies Allergen Reaction Date Comments Reported Other allergy 08/20/2016 PCN Other allergy 04/28/2017 PCN Other allergy 08/29/2020 pcn Admission Admission Data Admission Date: 08/28/2020 Admission Time: 17:49 Arrival Date: 08/29/2020 Arrival Time: 0:00 Admit Source: Other Insurance Payor: Medicare Room #: D.2119 [facility] #: [id number] Height (in.): 68 BSA: 1.92 (m2) Height (cm.): 172.72 BMI: 26.26 (kg/m2) Weight (lbs.): 172.71 Weight (kg.): 78.34 Procedure Procedure Types Cath Procedure Diagnostic Procedure LHC LHC w/Coronaries Procedure Description Procedure Date Procedure Date: 08/29/2020 Procedure Start Time: 14:57 Procedure End Time: 15:06 Procedure Staff Name Function Flavio Land MD Performing Physician Chiara Doty RT Scrub Mark Rhoades RN Nurse Jose D Echevarria RN Nurse Jo River RT Monitor Procedure Data Cath Procedure Fluoroscopy Diagnostic fluoroscopy Total fluoroscopy Time: 1.2 time: 1.2 min min Diagnostic fluoroscopy Total fluoroscopy dose: 413 dose: 413 mGy mGy Contrast Material Contrast Material Type Amount (ml) Isovue 300 56 Entry Location Entry Primary Successful Side Size Upsize Upsize Entry Closure Succes sful Closure Location (Fr) 1 (Fr) 2 (Fr) Remarks Device Remarks Femoral Right 5 Fr Exoseal artery Estimated blood loss: 5 ml Diagnostic catheters Device Type Used For End Catheter Placement MULTIPACK JL 4.0 5Fr Left Coronary catheter Angiography MULTIPACK 3DRC 5Fr Right Coronary catheter Angiography MULTIPACK Pigtail 5 Fr LV Angiography catheter Procedure Complications No complications Procedure Medications Medication Administration Route Dosage 0.9% NaCl I.V. 100 ml/hr Oxygen etCO2 Nasal cannula 2 l/min Heparin Flush Bag added to field 2 bags (1000units/500ml NS) Lidocaine 2% added to field 20 Versed I.V. 1 mg Fentanyl I.V. 50 mcg Hemodynamics Rest BSA: 1.92 (m2) O2 Consumption: Estimated: 277.51 (ml/min) O2 Consumption indexed : Estimated:144.54 (ml/min/m) Heart Rate: 146 (bpm) Pressure Samples Time Site Value (mmHg) Purpose Heart Use Rate(bpm) 15:02 LV 96/35,13 Snapshot 142 Gradients Valve Time Site Site Mean SEP/DFP Peak To Heart Use 1 2 (mmHg) (sec/min) Peak Rate (mmHg) (bpm) Aortic 15:02 LV AO 140 Snapshots Pre Cath Intra NCS Post Cath Vital Signs Time Heart Resp SPO2 etCO2 NIBP (mmHg) Rhythm Pain Sedation Rate (ipm) (%) (mmHg) Status Level (bpm) 14:35:28 145 18 97 0 128/101(111) A-Flutter 0 (11) 10(A) , No pain 14:39:31 145 16 98 26.1 118/95(108) A-Flutter 0 (11) 10(A) , No pain 14:43:35 146 13 97 0 113/82(97) A-Flutter 0 (11) 10(A) , No pain 14:47:35 148 10 93 14.2 114/91(99) A-Flutter 0 (11) 10(A) , No pain 14:51:36 147 14 96 34.4 103/85(101) A-Flutter 0 (11) 10(A) , No pain 14:55:34 147 12 97 17.9 109/87(106) A-Flutter 0 (11) 9(A) , No pain 14:59:32 127 11 97 35.9 114/93(102) A-Flutter 0 (11) 9(A) , No pain 15:03:33 142 12 96 32.9 112/87(101) A-Flutter 0 (11) 10(A) , No pain Medications Time Medication Route Dose Verified Delivered Reason Notes Eff ectiveness by by 14:39:17 0.9% NaCl I.V. 100 Jose D Jose D Per ml/hr Wale Echevarria physician RN RN 14:39:28 Oxygen etCO2 2 Jose D Jose D for low 02 Nasal l/min Lorigan Lorigan sats cannula RN RN 14:39:41 Heparin Flush added 2 Jose D Jose D used for Bag to bags Lorigan Wale procedure (1000units/500ml field RN RN NS) 14:39:51 Lidocaine 2% added 20ml Jose D Jose D for local to vial Lorigan Lorigan anesthetic field RN RN 14:57:32 Versed I.V. 1 mg Jose D Jose D for Lorigan Lorigan sedation RN RN 14:57:43 Fentanyl I.V. 50 Jose D Jose D for mcg Lorigan Lorigan sedation RN lead etl developer Log Time Note 14:04:32 Informed consent obtained and on chart 14:04:42 Diagnostic Cath Status : Urgent 14:05:06 Arrival Date: 08/29/2020 12:00:00 AM 14:05:07 Admit Source: Other 14:05:48 Insurance Payor : Medicare 14:05:57 Patient Height : 68 inches 14:06:01 Patient Weight : 172.71 lbs 14:06:09 ACC Patient presents with Unstable Angina CCS Anginal Class 2--Slight limitation of ordinary activity. 14:06:12 Procedure Status Urgent Heart Cath (IP). 14:06:14 Time tracking: Regular hours (M-F 7:00 - 5:00) 14:06:18 Plan of Care:Hemodynamics will remain stable., Cardiac rhythm will remain stable., Comfort level will be maintained., Respiratory function will remain adequate., Patient/ family verbilizes understanding of procedure., Procedure tolerated without complication., Recovers from procedure without complications.. 14:06:26 H&P Date Dictated: 08/28/2020 Within 30 days and on chart.. 14:06:29 Family unavailable. 14:06:31 Patient NPO since Midnight. 14:06:41 Patient allergic to Other allergypcn 14:06:49 Lab results completed and on chart. 14:06:52 Stress Test: no; N/A ? 14:20:46 Chiara Doty RT(R) sent for patient. Start room use. 14:27:09 Patient received from PCU to CCL 2 Alert and oriented. Tansferred to table in Supine position. 14:27:10 Warm blankets applied, and jr hugger turned on for patient comfort. 14:27:11 Correct patient and procedure confirmed by team. 14:27:11 ECG and BP/O2 sat monitors applied to patient. 14:27:13 Full Disclosure recording started 14:34:33 Vital chart was started 14:34:46 ACC The patient was administered the following blood thiners within the last 24 hours: Xarelto 14:34:50 Baseline sample Acquired. 14:34:55 Rhythm: atrial fibrillation 14:34:59 Pre-procedure instructions explained to patient. 14:34:59 Pre-op teaching completed and patient verbalized understanding. 14:35:02 Is the patient allergic to Iodine/contrast media? No. 14:37:58 Patient diabetic? No. 14:38:05 Previous problem with sedation/anesthesia? No ? 14:38:07 Snore? Yes 14:38:08 Sleep apnea? No 14:38:09 Deviated septum? No 14:38:09 Opens mouth fully? Yes 14:38:10 Sticks out tongue? Yes 14:38:12 Airway obstruction? Yes COPD 14:38:15 Dentures? No ? 14:38:39 Pre procedure: right dorsailis pedis pulse 2+ Normal; easily identifiable; not easily obliterated 14:38:43 Patient pain scale 0/10 ?. 14:39:17 0.9% NaCl 100 ml/hr I.V. was administered by Jose D Echevarria RN; Per physician; Verbal order read back and verified. 14:39:28 Oxygen 2 l/min etCO2 Nasal cannula was administered by Jose D Echevarria RN; for low 02 sats; Verbal order read back and verified. 14:39:34 IV patent on arrival in left forearm with 0.9% NaCl at O. 14:39:41 Heparin Flush Bag (1000units/500ml NS) 2 bags added to field was administered by Jose D Echevarria RN; used for procedure; Verbal order read back and verified. 14:39:51 Lidocaine 2% 20ml vial added to field was administered by Jose D Echevarria RN; for local anesthetic; Verbal order read back and verified. 14:40:02 Right groin area was prepped with chlora-prep and draped in sterile fashion 14:40:03 Alarms reviewed by R. N. 14:40:04 Sharps counted by scrub and verified by R.N. 14:43:49 Zero performed for pressure channel P1 14:53:59 Physician arrived 14:56:32 Final Timeout: patient, procedure, and site verified with staff and physician. All members of the team are in agreement. 14:56:33 Right groin site verified by team. 14:56:38 Fire Safety Assessment: A--An alcohol-based skin anteseptic being used preoperatively., C--Open oxygen or nitrous oxide is being used., D--An ESU, laser, or fiber-optic light is being used. 14:56:41 Physical assessment completed. ASA score P 2 - A patient with mild systemic disease as per Flavio Land MD. 14:57:00 3a) 45-59 Moderately reduced kidney function. 14:57:04 Maximum allowable contrast dose (3.7 X eGFR X 0.75)128 ml. 14:57:07 Sedation plan: IV Moderate Sedation Medication:Versed, Fentanyl 14:57:10 Use device set Femoral Dx 14:57:12 ACIST Syringe (87276) opened to sterile field. 14:57:16 Procedure started. 14:57:24 Local anesthetic to right femoral artery with Lidocaine 2% by Flavio Land MD.INITIAL ACCESS ONLY 14:57:32 Versed 1 mg I.V. was administered by Jose D Echevarria RN; for sedation; Verbal order read back and verified. 14:57:32 A 5 Fr sheath was inserted into the Right Femoral artery 14:57:35 Bag Decanter () opened to sterile field. 14:57:36 Medline Cath Pack ([id number]) opened to sterile field. 14:57:39 ACIST Hand Control (91692) opened to sterile field. 14:57:40 ACIST Manifold (11152) opened to sterile field. 14:57:40 DIAGNOSTIC Multipack 5Fr catheter set ([id number]) opened to sterile field. 14:57:43 Fentanyl 50 mcg I.V. was administered by Jose D Echevarria RN; for sedation; Verbal order read back and verified. 14:57:46 EMERALD Guide Wire (734-824) opened to sterile field. 14:57:56 SHEATH 5FR [place] (GLE954) opened to sterile field. 14:58:17 A MULTIPACK JL 4.0 5Fr catheter was advanced over the wire and used for Left Coronary Angiography. 14:59:34 Catheter removed. 15:00:10 A MULTIPACK 3DRC 5Fr catheter was advanced over the wire and used for Right Coronary Angiography. 15:00:57 Catheter removed. 15:01:02 A MULTIPACK Pigtail 5 Fr catheter was advanced over the wire and used for LV Angiography. 15:02:25 LV gram done using WYLIE 15:02:30 EF : 35 % 15:02:36 LV hemodynamics recorded. 15:02:41 Injector settings: Ml/sec: 10, Volume: 20, 15:02:42 Catheter removed. 15:02:46 EXOSEAL 5Fr (EX500) opened to sterile field. 15:02:47 Tegaderm 4 x 4 (1626W) opened to sterile field. 15:02:58 Sheath removed intact; hemostasis achieved with Exoseal to the Right Femoral artery. 15:03:00 Procedure ended.(Physican Out) 15:03:55 Fluoroscopy time 01.20 minutes. 15:03:58 Fluoroscopy dose: 413 mGy 15:03:58 Flurop Dose total: 413 15:04:01 Dose Area Product 135 mGy/cm. 15:04:04 Contrast amount:Isovue 300 56ml. 15:04:06 Maximum allowable dose exceeded? No. 15:04:07 Sharps counted by scrub and verified by R.N. 15:04:09 Insertion/operative site no bleeding no hematoma. 15:04:13 Post-op/insertion site Right Femoral artery dressed using a 4 x 4 and Tegaderm. 15:04:15 Post right femoral artery:stable, clean and dry 15:04:17 Post Procedure Pulses reassessed and unchanged 15:04:21 Post-procedure physical assessment completed. ASA score P 2 - A patient with mild systemic disease as per Flavio Land MD. 15:04:23 Post procedure rhythm: unchanged. 15:04:26 Estimated blood loss: 5 ml 15:04:27 Post procedure instruction explained to patient.Patient verbalizes understanding. 15:04:28 Patient needs reinforcement of post procedure teaching. 15:04:55 Procedure type changed to Cath procedure, Diagnostic procedure, LHC, LHC w/Coronaries 15:04:57 Procedure and supply charges have been captured, reviewed, submitted and are correct. 15:05:02 Procedure Complication : No complications 15:05:06 Operative report dictated upon procedure completion. 15:05:07 See physician's report for complete and final results. 15:05:28 Report given to PCU. 15:06:42 Vital chart was stopped 15:06:46 Patient transfered to PCU with Bed. 15:06:52 Procedure ended. 15:06:52 Full Disclosure recording stopped Device Usage Item Name Manufacture Quantity Catalog Hospital Part Current Minimal L ot# / Number Charge Number Stock Stock Serial# Code ACIST Acist 1 86884 632612 132714 279110 20 Syringe Medical (73135) Systems Inc Bag Microtek 1 2001S 196042 88928 054379 5 Decanter Medical Inc. () Medline Medline 1 [id number] 613179 09853 033199 5 Cath Pack ([id number]) ACIST Hand Acist 1 32217 166459 535775 247351 5 Control Medical (51038) Systems Inc ACIST Acist 1 72723 591184 108500 325566 5 Manifold Medical (96201) Systems Inc DIAGNOSTIC Cardinal 1 [id number] 266018 11804 281719 30 Multipack Health 5Fr catheter set (UU8760) EMERALD Cardinal 1 502-455 371737 267652 108482 5 Guide Wire Health (502-455) SHEATH 5FR Terumo 1 NVW033 645975 074529 445169 5 [place] (ELS319) MULTIPACK Cardinal 1 589565 5 JL 4.0 5Fr Health catheter MULTIPACK Cardinal 1 725342 5 3DRC 5Fr Health catheter MULTIPACK Cardinal 1 917430 5 Pigtail 5 Health Fr catheter EXOSEAL 5Fr Cardinal 1 EX500 418876 310928 507396 10 (EX500) Health Tegaderm 4 3M 1 1626W 519864 933006 876817 5 x 4 (1626W) Signature Audit Bridgman Stage Time Signature Unsigned Intra-Procedure 08/29/2020 Jose D 3:07:42 PM Wale RN; Jo River RT(R); Flavio Land MD Signatures Performing Physician : Signature : Flavio Land MD Date : Time : Nurse : Mark Rhoades RN Signature : Date : Time : Nurse : Jose D Lorigan Signature : RN Date : Time : Monitor : Jo Signature : Counts RT Date : Time : [address] [place] [address]
[2020-08-28 16:04] VITALS: BP 105/73
[2020-08-28 16:32] LABS: BASOPHILS 0.2 % (0-2); HEMATOCRIT 42.4 % (42.0-54.0); IMMATURE GRANULOCYTES 0.4 % (0-5); LYMPHOCYTE ABS# 1.73 10x3/uL (1.32-3.57); LYMPHOCYTES 21.3 % (15-50); MCH 30.9 pg (26.0-34.0); MCV 93.6 fL (80.0-100.0); MEAN PLATELET VOLUME 10.3 fL (7.4-10.4); MONOCYTES 7.4 % (2-11); NEUTROPHILS 68.7 % (40-80); RBC 4.53 10x6/uL (4.20-6.10); RDW 13.4 % (11.5-14.5); WBC 8.1 10x3/uL (4.8-10.8)
[2020-08-28 16:34] LABS: PLATELET COUNT 201 10x3/uL (130-400)
[2020-08-28 16:39] LABS: APTT 33.8 SECONDS (22.8-39.4); INR 1.7 (0.85-1.17); PROTIME 18.5 SECONDS (11.6-15.0)
[2020-08-28 16:41] LABS: CALC OSMOLALITY 280 mosm/kg (275-300); CALCIUM 8.9 mg/dL (8.5-10.1); CARBON DIOXIDE 24.4 mmol/L (21.0-32.0); CHLORIDE - SERUM 102 mmol/L (98-107); CREATININE - SERUM 1.9 mg/dL (0.6-1.3); POTASSIUM - SERUM 4.2 mmol/L (3.5-5.1); SODIUM 136 mmol/L (136-145); UREA NITROGEN 28 mg/dL (7-18); eGFR NON AFRICAN AMERICAN 37 mL/min (90-120)
[2020-08-28 16:46] LABS: GLUCOSE 158 mg/dL (74-106)
[2020-08-28 17:03] LABS: ALBUMIN 3.6 g/dL (3.4-5.0); ALKALINE PHOSPHATASE 101 U/L (30-120); ALT (SGPT) 26 U/L (10-68); BILIRUBIN - TOTAL 0.36 mg/dL (0.2-1.3); CKMB 2.5 U/L (0.0-3.6); CREATINE KINASE 107 UL (21-232); MAGNESIUM - SERUM 1.9 mg/dL (1.8-2.4); PROTEIN - SERUM 6.7 g/dL (6.4-8.2)
[2020-08-28 17:04] VITALS: BP 105/73
[2020-08-28 17:04] LABS: TROPONIN-I 0.075 ng/mL (0.000-0.060)
[2020-08-28 18:05] VITALS: BP 104/75
[2020-08-28 19:04] VITALS: BP 104/78
--- NOTE | 2020-08-28 20:30 | NUR ---
REPORT RECEIVED, WILL CONT POC. PT A&O, UP AD JC, NS INFUSING AT 50CC/HR. PT DENIES CHEST PAIN OR ANY OTHER S/S OF MT. NO S/S OF DISTRESS OBSERVED. RR EVEN & UNLABORED ON RA. BED LOCKED AND LOWERED, CL IN REACH. ASSESSMENT COMPLETED AT THIS TIME. , KIRT, CONTACTED AND UPDATED WITH PTS LOCATION AND STATUS. RECEIVED MED REC FROM . PT DENIES NEEDS AT THIS TIME.
[2020-08-28 22:00] VITALS: BP 116/81; BMI 26.3
[2020-08-28] MEDS ORDERED: ASPIRIN81 MG PO (22:16)
[2020-08-28] MEDS ORDERED: MECLIZINE HCL12.5 MG (22:17)
[2020-08-28] MEDS ORDERED: ELAVIL10 MG PO (22:18)
[2020-08-28] MEDS ORDERED: LIPITOR10 MG PO (22:18)
[2020-08-28] MEDS ORDERED: ATARAX 25 MG TA25 MG PO (22:19)
[2020-08-28] MEDS ORDERED: BYSTOLIC10 MG PO (22:19)
[2020-08-28] MEDS ORDERED: XARELTO10 MG PO (22:20)
[2020-08-28 23:47] LABS: CKMB 2.1 U/L (0.0-3.6); CREATINE KINASE 97 UL (21-232)
[2020-08-28 23:48] LABS: TROPONIN-I 0.069 ng/mL (0.000-0.060)
[2020-08-29] VITALS: BP 111/77
[2020-08-29 04:00] VITALS: BP 105/75
[2020-08-29 06:35] LABS: BASOPHILS 0.3 % (0-2); HEMATOCRIT 39.8 % (42.0-54.0); HEMOGLOBIN 13.1 g/dL (13.5-17.5); IMMATURE GRANULOCYTES 0.3 % (0-5); LYMPHOCYTE ABS# 1.83 10x3/uL (1.32-3.57); LYMPHOCYTES 23.1 % (15-50); MCH 30.8 pg (26.0-34.0); MCHC 32.9 g/dL (31.0-37.0); MCV 93.6 fL (80.0-100.0); MONOCYTES 8.2 % (2-11); NEUTROPHIL ABS# 5.15 10x3/uL (1.78-5.38); NEUTROPHILS 65.1 % (40-80); PLATELET COUNT 185 10x3/uL (130-400); RBC 4.25 10x6/uL (4.20-6.10); RDW 13.4 % (11.5-14.5); WBC 7.9 10x3/uL (4.8-10.8)
[2020-08-29 06:50] LABS: ALBUMIN 3.1 g/dL (3.4-5.0); ALKALINE PHOSPHATASE 87 U/L (30-120); ALT (SGPT) 27 U/L (10-68); BILIRUBIN - TOTAL 0.54 mg/dL (0.2-1.3); CALCIUM 8.3 mg/dL (8.5-10.1); CARBON DIOXIDE 23.5 mmol/L (21.0-32.0); CHLORIDE - SERUM 106 mmol/L (98-107); CREATINE KINASE 82 UL (21-232); CREATININE - SERUM 1.6 mg/dL (0.6-1.3); MAGNESIUM - SERUM 1.9 mg/dL (1.8-2.4); PRO BNP 1825 pg/mL (0-125); SODIUM 136 mmol/L (136-145); THYROID STIMULATING HORMONE 2.72 uIU/mL (0.36-3.74); TROPONIN-I 0.053 ng/mL (0.000-0.060); UREA NITROGEN 23 mg/dL (7-18); eGFR NON AFRICAN AMERICAN 46 mL/min (90-120)
[2020-08-29 06:52] LABS: CALC OSMOLALITY 275 mosm/kg (275-300); GLUCOSE 100 mg/dL (74-106)
--- NOTE | 2020-08-29 07:20 | NUR ---
RECIEVE REPORT. ALERT AND ORIENTED X4. RESTING IN BED. SINUS RYTHM ON TELEMETRY. DENIES ANY NEEDS AT THIS TIME. CONTINUE PLAN OF CARE AND SAFETY PRECAUTIONS.
[2020-08-29 07:28] VITALS: BP 140/72
--- NOTE | 2020-08-29 08:17 | NUR ---
NOTIFY OF HR-144 FLUTTER. LOPRESSOR 5mg IV ONE TIME AND 50mg PO ORDERED VIA TELEPHONE. HOLD MORNING XARELTO PER FOR OIL AND GAS EXPLORATION TECHNICIAN. CONTINUE PLAN OF CARE AND SAFETY PRECAUTIONS.
[2020-08-29 09:11] LABS: CHOL - HDL RATIO 2.3 ratio (2.3-4.9)
[2020-08-29 10:59] VITALS: Ht 172.7 cm; Wt 78.3 kg
[2020-08-29 11:31] LABS: CKMB 1.5 U/L (0.0-3.6); CREATINE KINASE 77 UL (21-232); TROPONIN-I 0.049 ng/mL (0.000-0.060)
--- NOTE | 2020-08-29 13:32 | NUR ---
ALERT AND ORIENTED X4. SITTING UP IN BED. CONSENTS FOR RELAY OPERATOR SIGNED ON CHART. PREOP COMPLETE. CONTINUE PLAN OF CARE AND SAFETY PRECAUTIONS.
--- NOTE | 2020-08-29 14:31 | NUR ---
SPOUSE ARRIVES TO ROOM. DEMANDING CHAIR. SPOUSE ASKS, "WHAT MEDICATIONS DID YOU GIVE HIM BEFORE HIS PROCEDURE? AND WHY IS THERE NOT A MACHINE IN HERE MONITORING HIS BLOOD PRESSURE EVERY 2 HOURS?" EXPLAIN PREOP MEDICATIONS AND VITAL SIGNS ON THIS UNIT EVERY 4H. ATTEMPT TO EXPLAIN BP @15mins POST PROCEDURE WHEN SPOUSE STATES, "YOU KNOW WHAT, I DON'T NEED TO TALK TO YOU. GET OUT." PATIENT TAKEN TO BUCKLE STRAP DRUM OPERATOR VIA BED.
[2020-08-29 15:00] VITALS: BP 110/76
--- NOTE | 2020-08-29 15:28 | NUR ---
ARRIVE BACK TO ROOM VIA BED FROM CONCIERGE. ALERT AND ORIENTED X4. RT GROIN DRESSING C/D/I. PULSE PALPABLE BILATERALLY. BP-101/79, HR-144 AFLUTTER, O2-94% RA. SPOUSE AT BEDSIDE. IV DIGOXIN ADMINISTERED OVER 5 MINUTES ORDERED. HR REMAINS IN 140s AFLUTTER. CONTINUE PLAN OF CARE AND AND SAFETY PRECAUTIONS.
--- NOTE | 2020-08-29 17:31 | NUR ---
BED REST UP. ELEVATE HOB TO 45 DEGREES. RT GROIN DRESSING C/D/I. FREE FROM HEMATOMA. FREE FROM BLEEDING. FLUTTER 79 ON TELEMETRY. DENIES ANY NEEDS. CONTINUE PLAN OF CARE AND SAFETY PRECAUTIONS.
--- NOTE | 2020-08-29 19:15 | NUR ---
ASSESSMENT COMPLETE. PT A&O. RESPERTIONS EVEN ON RA. IV TO LEFT ARM WITH NS INFUSING AT 50 CC/HR, IV SITE C/D, NO SWELLING OR REDNESS NOTED. DRSG NOTED TO RIGHT GROIN FROM CARDIAC CATH DONE EARLIER TODAY, C/D/I. NO SWELLING, BLEEDING OR HEMATOMA NOTED. PEDAL PULSES PRESENT. PT ASKING FOR SOMETHING TO EAT, STATED THAT HE DIDNT GET A DINNER TRAY. SANDWICH TRAY GIVEN. PT DENIES PAIN OR OTHER NEEDS. BED LOW, CL IN REACH.
--- NOTE | 2020-08-29 19:35 | NUR ---
SPOKE WITH PTS ON PHONE, SHES VERY UP SET THAT PT DIDNT GET A DINNER TRAY, INFORMED HER THAT WE GAVE PT A SANDWICH TRAY AND TOLD PTS THAT IF HE WANTS SOMETHING ELSE LATER THAT I WILL BE SURE TO GIVE HIM A SNACK, PTS WIE SEEMED TO BE OK WITH THAT.
[2020-08-29 20:00] VITALS: BP 104/71
--- NOTE | 2020-08-29 20:24 | NUR ---
HS MEDS GIVEN WITH FRESH ICE WATER. ICE CREAM AND LEMON POINT LAY IRA SODA ALSO GIVEN.
[2020-08-30] VITALS: BP 104/68
--- NOTE | 2020-08-30 02:47 | NUR ---
NOTIFIED BY MT THAT PT HAS CONVERTED FROM FLUTTER TO SR WITH A HR IN HIGH 50'S.
[2020-08-30 04:00] VITALS: BP 103/69
--- NOTE | 2020-08-30 05:43 | NUR ---
I have reviewed this patient and I concur with the Shift Assessment completed by the Licensed Practical Nurse today this shift.
[2020-08-30 06:24] LABS: BASOPHILS 0.2 % (0-2); EOSINOPHILS 2.8 % (0-7); HEMATOCRIT 39.7 % (42.0-54.0); IMMATURE GRANULOCYTES 0.2 % (0-5); LYMPHOCYTE ABS# 1.58 10x3/uL (1.32-3.57); LYMPHOCYTES 18.2 % (15-50); MCH 30.8 pg (26.0-34.0); MCHC 32.7 g/dL (31.0-37.0); MCV 94.1 fL (80.0-100.0); MEAN PLATELET VOLUME 10.9 fL (7.4-10.4); NEUTROPHIL ABS# 6.23 10x3/uL (1.78-5.38); NEUTROPHILS 71.6 % (40-80); PLATELET COUNT 180 10x3/uL (130-400); RBC 4.22 10x6/uL (4.20-6.10); RDW 13.4 % (11.5-14.5); WBC 8.7 10x3/uL (4.8-10.8)
[2020-08-30 07:09] LABS: ALBUMIN 3.2 g/dL (3.4-5.0); ANION GAP 13.3 mmol/L (8-16); BILIRUBIN - TOTAL 0.42 mg/dL (0.2-1.3); CALCIUM 8.9 mg/dL (8.5-10.1); CARBON DIOXIDE 24.5 mmol/L (21.0-32.0); CREATININE - SERUM 1.6 mg/dL (0.6-1.3); POTASSIUM - SERUM 4.8 mmol/L (3.5-5.1); PROTEIN - SERUM 6.1 g/dL (6.4-8.2)
--- NOTE | 2020-08-30 07:10 | NUR ---
RECEIVE SHIFT REPORT. RESTING IN BED WITH LIGHTS OFF. DENIES ANY NEEDS AT THIS TIME. CALL LIGHT IN REACH. WILL CONTINUE POC AND SAFETY PRECAUTIONS.
--- NOTE | 2020-08-30 07:57 | NUR ---
PATIENT SPOUSE CALLED AND WANTED TO MAKE SURE HE IS GETTING A BREAKFAST TRAY AND STATES HE NEEDS A WATER AND A SPRITE. ALSO ASKING WHY HE HASN'T BEEN HAVING IV FLUIDS. PATIENT HAS FLUIDS ORDERED WILL HOOK HIM UP. RECEIVED IN REPORT HE WAS UNHOOKED TO GO TO RESTROOM. SITTING UP IN BED. CALL LIGHT IN REACH. CONTINUE POC AND SAFETY PRECAUTIONS.
--- NOTE | 2020-08-30 08:08 | EC ---
PATIENT:SAMMI EASTON DATE OF SERVICE: 08/28/20 SEX: M MEDICAL RECORD: [id number] DATE OF : 50 LOCATION:D.M2 D.211 AGE OF PATIENT: 69 ADMISSION DATE: 08/28/20 REFERRING PHYSICIAN: INTERPRETING PHYSICIAN: SUDHA REIS MD ECHOCARDIOGRAM REPORT ECHO CHARGES 4 ECHO COMPLETE Date: 08/29/20 CLINICAL DIAGNOSIS: DYSPNEA ECHOCARDIOGRAPHIC MEASUREMENTS (adult normal given) AC root (d.<3.7cm) 3.0 cm LV Septum d (<1.2 cm> 0.7 cm Valve Excursion 1.7 cm LV Septum (systole) 0.9 cm Left Atria (s.<4.0cm> 5.3 cm LVPW d(<1.2cm) 0.8 cm RV (d.<2.3cm) 3.3 cm LVPW (sytole) 1.2 cm LV diastole(<5.6CM) 6.7 cm MV E-F(>70mm/sec) cm LV systole 5.4 cm LVOT Diameter 2.0 cm MV exc.(>10mm) 1.2 cm Est.ejection fraction (50-75%) % DOPPLER: LVIT cm/sec A 19 cm/sec E 81 cm/sec LA cm/sec RVSP 23 mmHg LVOT 61 cm/sec AOP1/2T m/s Asc. 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 Pleitez TAPE# Pericardial Effusion N DATE OF SERVICE: Adequate 2D, color-flow imaging, spectral Doppler, and M-Mode. FINDINGS: No LVH. LV internal dimensions are normal. LV appears to be mildly globally hypo with EF mildly reduced at 40% to 45% and aortic valve sclerosis without stenosis by Doppler interrogation. Left atrium is dilated at 5.3 cm. Mitral valve shows no prolapse. Trace MR. Right side is grossly normal. Trace TR. ECHOCARDIOGRAM REPORT [id number] SAMMI EASTON TRANSINT:[id number] Voice Confirmation ID: [id number] DOCUMENT ID: [id number] SUDHA REIS MD at 0808 CC: [id number] DICTATION DATE: 08/29/20 1631 EPIC BEACON ANALYST: 08/30/20 0146 ADM IN [facility] [address] [id number]
--- NOTE | 2020-08-30 08:08 | OP ---
PATIENT NAME: SAMMI EASTON MEDICAL RECORD: [id number] :50 LOCATION:D.M2 D.2119 ADMISSION DATE:08/28/20 SURGEON: SUDHA REIS MD DATE OF OPERATION: 08/29/2020 PROCEDURE: Left heart catheterization, selective coronary angiography, right femoral artery approach. CATHETERS: A 5-Kyrgyz sheath, 5/4 left and right Pavel. 5/4 pig. The procedure was well tolerated. The patient returned to murphy. Sheath was removed. ExoSeal device was placed. FINDINGS: Left ventriculography in 30-degree WYLIE view: Global hypokinesis, more marked inferior basilar hypokinesis. Overall EF function 35%. CORONARY ANATOMY: Left main: Left main is free of disease. LAD: LAD has a previously stent is widely patent. No evidence of restenosis or progression of chippewa-cree disease. Circumflex: Left dominant system. Previous area of stenting is widely patent. RIGHT CORONARY: Rudimentary. 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 Stents were widely patent. Start sotalol. Continued to DOAC and Xarelto 20 mg p.o. daily. One dose digoxin for rate control. Consider cardioversion after rate control and adequate anticoagulation. TRANSINT:[id number] Voice Confirmation ID: [id number] DOCUMENT ID: [id number] SUDHA REIS MD at 0808 CC: [id number] DICTATION DATE: 08/29/20 1511 HAIRSPRING VIBRATOR: 08/30/20 0017 ADM IN [facility] [address] [place] [address]
[2020-08-30 08:12] VITALS: BP 114/71
[2020-08-30] MEDS ORDERED: BETAPACE 80 MG80 MG PO (08:46)
--- NOTE | 2020-08-30 10:20 | NUR ---
JINNY RN D/C LEFT FOREARM IV, TIP INTACT. TELEMETRY OFF. DISCHARGE INSTRUCTIONS GIVEN VERBALLY AND HANDOUTS PROVIDED. PRESCRIPTION GIVEN FOR BETAPACE. TAKEN DOWN TO ED ENTRANCE VIA WHEELCHAIR. SPOUSE AT SIDE. REMAINS FREE FROM INJURY.
== END 2020-08-30 10:20 | disposition home or self-care (01) | DRG 280 ==
LOC: D.ER 15:49 → D.M2 17:49
PROVIDERS: Emergency Medicine; Internal Medicine Interventional Cardiology; ADMIT Family Medicine; ATTEND Family Medicine
PROC: B2151ZZ Fluoroscopy of Left Heart using Low Osmolar Contrast (ICD-10-PCS; 2020-08-29)
PROC: 4A023N7 Measurement of Cardiac Sampling and Pressure, Left Heart, Percutaneous Approach (ICD-10-PCS; 2020-08-29)
PROC: B2111ZZ Fluoroscopy of Multiple Coronary Arteries using Low Osmolar Contrast (ICD-10-PCS; principal; 2020-08-29 14:27)
DX: I47.1 Supraventricular tachycardia (principal); I50.23 Acute on chronic systolic (congestive) heart failure; I21.A1 Myocardial infarction type 2; I13.0 Hypertensive heart and chronic kidney disease with heart failure and stage 1 through stage 4 chronic kidney disease, or unspecified chronic kidney disease; N17.9 Acute kidney failure, unspecified; I42.8 Other cardiomyopathies; I48.92 Unspecified atrial flutter; N18.9 Chronic kidney disease, unspecified; R73.9 Hyperglycemia, unspecified; I25.10 Atherosclerotic heart disease of native coronary artery without angina pectoris; N40.0 Benign prostatic hyperplasia without lower urinary tract symptoms; J44.9 Chronic obstructive pulmonary disease, unspecified; I48.91 Unspecified atrial fibrillation